=== PATIENT | female | born 1960 | race Caucasian/White ===

== ENCOUNTER 2018-01-09 13:56 | Emergency (ER) | payer OTHER ==
[~2018-01-09] VITALS: Ht 167.6 cm; Wt 72.6 kg
[2018-01-09] MEDS ORDERED: HYDROCODONE/APAP 10MG-325MG TAB PO ONE (14:30)
--- NOTE | 2018-01-09 14:52 | Diagnostic Imaging Report ---
EXAM: FOOT LEFT COMPLETE DATE: 01/09/2018 2:18 PM INDICATION: \S\r/o fx \S\[id number] \S\1430 COMPARISON: None FINDINGS: Amputation changes of second toe present. Scattered degenerative changes noted. Lisfranc alignment intact. There is a small plantar calcaneal enthesophyte. No distinct fracture identified. IMPRESSION: Chronic changes as above. Signed by: Dr. Cricket Chris MD on 01/09/2018 2:48 PM
--- NOTE | 2018-01-09 14:52 | Diagnostic Imaging Report ---
EXAM: ANKLE 3+ VIEWS LEFT DATE: 01/09/2018 2:18 PM INDICATION: Twisted ankle COMPARISON: None FINDINGS: The ankle mortise is symmetric. There is no abnormality of the talar dome. No fractures identified. Mild soft tissue swelling present. There is a small plantar calcaneal enthesophyte incidentally noted. IMPRESSION: Mild soft tissue swelling with no distinct fracture identified. Signed by: Dr. Cricket Crhis MD on 01/09/2018 2:48 PM
[2018-01-09] MEDS ORDERED: TRAMADOL HCL 50 MG TAB PO ONE (15:00)
[2018-01-09 15:38] VITALS: BP 149/65
== END 2018-01-09 16:15 | disposition home or self-care (01) ==
LOC: ER 13:56
DX: S93.402A Sprain of unspecified ligament of left ankle, initial encounter (principal); S93.622A Sprain of tarsometatarsal ligament of left foot, initial encounter; X50.1XXA Overexertion from prolonged static or awkward postures, initial encounter; Y92.008 Other place in unspecified non-institutional (private) residence as the place of occurrence of the external cause; I10 Essential (primary) hypertension; E11.9 Type 2 diabetes mellitus without complications
CPT/HCPCS: 99283

== ENCOUNTER 2019-03-30 10:49 | Emergency (ER) | payer OTHER ==
[~2019-03-30] VITALS: Ht 167.6 cm; Wt 72.6 kg
--- OUTSIDE RECORDS SUMMARY | 2019-03-30 10:52 | XMS REPORT ---
Author [facility] Address Unknown Phone Unavailable Care Team Providers Care Medical Appliance Maker Name Role Phone Misael HAYWOOD AMANDA Unavailable Unavailable Problems This patient has no known problems. Allergies, Adverse Reactions, Alerts This patient has no known allergies or adverse reactions. Medications This patient has no known medications. Results Test Description Test Time Test Comments Text Results Atomic Results Result Comments FOOT LEFT COMPLETE 2018-01-09 14:48:00 [place] [id number] [place] [id number] Patient Name: ANTONIO DIEGO MR #: [id number] : 1960 Age/Sex: 57/F Req #: [id number] Adm Physician: Ordered by: MIKE HARP TENTERING MACHINE OFF BEARER Report #: [id number] Location: ER Room/Bed: Procedure: [id number] DX/FOOT LEFT COMPLETE Exam Date: 01/09/18 Exam Time: 1430 REPORT STATUS: Signed EXAM: FOOT LEFT COMPLETE DATE: 01/09/2018 2:18 PM INDICATION: COMPARISON: None FINDINGS: Amputation changes of second toe present. Scattered degenerative changes noted. Lisfranc alignment intact. There is a small plantar calcaneal enthesophyte. No distinct fracture identified. IMPRESSION: Chronic changes as above. Signed by: Dr. Cricket Chris MD on 01/09/2018 2:48 PM Dictated By: CRICKET CHRIS MD 47 Transcribed By: GUSTAVO on 01/09/181447 COPY TO: MIKE HARP NP ANKLE 3+ VIEWS LEFT 2018-01-09 14:47:00 [place] [address] Patient Name: ANTONIO DIEGO MR #: [id number] : 1960 Age/Sex: 57/F Req #: [id number] Adm Physician: Ordered by: MIKE HARP NP Report #: [id number] Location: ER Room/Bed: Procedure: [id number] DX/ANKLE 3+ VIEWS LEFT Exam Date: 01/09/18 Exam Time: 1430 REPORT STATUS: Signed EXAM: ANKLE 3+ VIEWS LEFT DATE: 01/09/2018 2:18 PM INDICATION: Twisted ankle COMPARISON: None FINDINGS: The ankle mortise is symmetric. There is no abnormality of the talar dome. No fractures identified. Mild soft tissue swelling present. There is a small plantar calcaneal enthesophyte incidentally noted. IMPRESSION: Mild soft tissue swelling with no distinct fracture identified. Signed by: Dr. Cricket Chris MD on 01/09/2018 2:48 PM Dictated By: CRICKET CHRIS MD 47 Transcribed By: GUSTAVO on 01/09/181447 COPY TO: MIKE HARP NP
[2019-03-30] MEDS ORDERED: HYDROCODONE/APAP 7.5MG-325MG 1 EA TAB PO PRN (11:15)
--- NOTE | 2019-03-30 12:16 | Diagnostic Imaging Report ---
EXAMINATION: Head and cervical spine CT without contrast. HISTORY: Status post fall the day before, head trauma, evaluate for fractures. COMPARISON: None. TECHNIQUE: Multidetector axial images were obtained without contrast from the foramen magnum to the vertex and through the cervical spine. The images were reconstructed using brain and bone algorithms. Thin section brain images were reformatted into coronal and sagittal planes. Dose modulation, iterative reconstruction, and/or weight based adjustment of the mA/kV was utilized to reduce the radiation dose to as low as reasonably achievable. HEAD CT FINDINGS: Skull/scalp: No lytic or blastic lesions. No fractures. Parenchyma: A few scattered white matter hypodensities, most likely age-related minimal chronic atelectatic changes. Otherwise no areas of abnormal density in the brain parenchyma. No mass, hemorrhage or CT evidence of acute vascular insult. Brain volume: Normal for age. Ventricles: No hydrocephalus or displacement. Arteries: No density suggestive of thrombus. Dural sinuses: No abnormal density. Extra-axial spaces: No abnormal density. Foramen magnum: No mass, Chiari malformation, or basilar invagination. Sella: No obvious mass. Paranasal/mastoid sinuses: Imaged portions unremarkable. CERVICAL SPINE CT FINDINGS: Alignment:Normal alignment and lordosis. Soft tissues: Normal. Vertebrae: Normal height and density. No acute fracture, infection or neoplasm. Degenerative changes: C1-C2 to C5-6: No significant degenerative changes C6-C7: Small disc osteophyte complex formation asymmetric to left, mild uncovertebral arthrosis medial the left. Mild to moderate narrowing of the left lateral recess and left foramen. C7-T1: Prominent facet arthrosis minimally on the left, without significant canal or foraminal stenosis. IMPRESSION: Head CT: 1. No acute postraumatic intracranial hemorrhage. 2. Minimal chronic microvascular ischemic changes. Cervical spine CT: 1. No acute fractures or dislocations. 2. Chronic degenerative changes as described. Note: Acute post traumatic spinal cord, vascular or ligamentous injury cannot adequately be assessed with CT. Signed by: Dr. Carolin White M.D. on 03/30/2019 12:12 PM
--- NOTE | 2019-03-30 12:54 | Diagnostic Imaging Report ---
EXAMINATION: HAND 3+ VIEWS RIGHT INDICATION: Trauma COMPARISON: None FINDINGS: No acute fracture or dislocation. Alignment appears anatomic. Mild scattered degenerative changes. The soft tissues appear unremarkable. IMPRESSION: No acute osseous injury. Signed by: Lester Chatman MD on 03/30/2019 12:51 PM
--- NOTE | 2019-03-30 12:55 | Diagnostic Imaging Report ---
EXAMINATION: KNEE LEFT THREE VIEWS INDICATION: Trauma COMPARISON: None FINDINGS: No acute fracture or dislocation. Alignment appears anatomic. No substantial joint effusion. Soft tissues appear unremarkable. Mild atherosclerotic vascular calcifications. IMPRESSION: No acute osseous injury. Signed by: Lester Chatman MD on 03/30/2019 12:52 PM
--- NOTE | 2019-03-30 12:58 | Diagnostic Imaging Report ---
EXAMINATION: SP LUMBAR, COMPLETE MIN 4VW INDICATION: Trauma COMPARISON: None FINDINGS: No acute compression fracture. Alignment is anatomic. Mild multilevel degenerative changes most notably at L5-S1 where there is disc space narrowing and small osteophyte formation. Heavy atherosclerotic vascular calcifications. Nonobstructive bowel gas pattern. Status post cholecystectomy. IMPRESSION: No acute compression fracture. Mild degenerative changes. Signed by: Lester Chatman MD on 03/30/2019 12:54 PM
--- NOTE | 2019-03-30 12:59 | Diagnostic Imaging Report ---
EXAMINATION: HIP LEFT 2-3 VW (+/- PELVIS) INDICATION: Trauma COMPARISON: None FINDINGS: No acute fracture or dislocation. Alignment appears anatomic. Sclerotic lesion at the lateral left femoral head likely represents a bone island. IMPRESSION: No acute osseous injury. Signed by: Lester Chatman MD on 03/30/2019 12:56 PM
--- NOTE | 2019-03-30 13:02 | Diagnostic Imaging Report ---
EXAMINATION: RIBS UNILAT W/CXR INDICATION: Trauma COMPARISON: None FINDINGS: LINES/TUBES:None LUNGS:The lungs are well-inflated. No focal consolidation or pulmonary edema. PLEURA:No pleural effusion or pneumothorax. MEDIASTINUM:The cardiomediastinal silhouette appears normal in size and shape. Bic mac chest BONES/SOFT TISSUES:No displaced rib fractures. ABDOMEN:No free air under the diaphragm. IMPRESSION: No displaced rib fractures. No acute cardiopulmonary process. Signed by: Lester Chatman MD on 03/30/2019 12:59 PM
[2019-03-30 13:46] VITALS: BP 124/77
== END 2019-03-30 14:00 | disposition home or self-care (01) ==
LOC: ER 10:49
DX: S06.890A Other specified intracranial injury without loss of consciousness, initial encounter (principal); S80.212A Abrasion, left knee, initial encounter; S16.1XXA Strain of muscle, fascia and tendon at neck level, initial encounter; S39.012A Strain of muscle, fascia and tendon of lower back, initial encounter; S00.83XA Contusion of other part of head, initial encounter; S60.211A Contusion of right wrist, initial encounter; S60.221A Contusion of right hand, initial encounter; S80.02XA Contusion of left knee, initial encounter; W01.0XXA Fall on same level from slipping, tripping and stumbling without subsequent striking against object, initial encounter; Y93.89 Activity, other specified; Y92.410 Unspecified street and highway as the place of occurrence of the external cause; R07.81 Pleurodynia; E11.9 Type 2 diabetes mellitus without complications; I10 Essential (primary) hypertension
CPT/HCPCS: 70450; 71101; 72110; 72125; 99284

== ENCOUNTER 2019-04-09 15:31 | Emergency (ER) | payer OTHER ==
[~2019-04-09] VITALS: Ht 167.6 cm; Wt 72.6 kg
[2019-04-09] MEDS ORDERED: HYDROCODONE/APAP 5MG-325MG TAB ONE (15:59)
[2019-04-09] MEDS ORDERED: HYDROCODONE/APAP 10MG-325MG TAB PO NR (16:00)
--- NOTE | 2019-04-09 16:32 | Diagnostic Imaging Report ---
EXAMINATION: CT of the pelvis without contrast. TECHNIQUE: Spiral CT images of the pelvis were obtained without intravenous contrast. Coronal and sagittal reformatted images were available. COMPARISON: Left hip radiographs 2018 CLINICAL HISTORY:Status post fall on March 29 ongoing left hip pain DISCUSSION: ABSENCE OF INTRAVENOUS CONTRAST DECREASES SENSITIVITY FOR DETECTION OF FOCAL LESIONS AND VASCULAR PATHOLOGY. Pelvis: Bones: Diffuse osteopenia. No acute fractures. Specifically, the left hip joint, proximal femur, and acetabulum are intact. Probable bone island laterally within the left femoral head. Pelvic viscera: Atherosclerotic calcification of the visualized iliac arterial systems. Distal segments of the colon are unremarkable. No dilatation of the visualized small bowel to suggest obstruction. Urinary bladder is poorly distended and incompletely evaluated. Uterus is not identified and has presumably been resected. No lymphadenopathy. Soft tissues: No focal soft tissue abnormalities. Degenerative disc changes of the partially visualized lower lumbar spine. Sacroiliac joints are intact. IMPRESSION: No acute osseous abnormality. Signed by: Dr. Logan Fabian M.D. on 04/09/2019 4:28 PM
== END 2019-04-09 16:50 | disposition home or self-care (01) ==
LOC: FSED 15:31
DX: S73.112A Iliofemoral ligament sprain of left hip, initial encounter (principal); W18.30XA Fall on same level, unspecified, initial encounter; Y92.008 Other place in unspecified non-institutional (private) residence as the place of occurrence of the external cause; I10 Essential (primary) hypertension; E11.9 Type 2 diabetes mellitus without complications
CPT/HCPCS: 72192; 99284

== ENCOUNTER 2019-11-26 10:40 | Inpatient (IN) | payer OTHER ==
[~2019-11-26] VITALS: Ht 165.1 cm; Wt 72.6 kg
--- NOTE | 2019-11-26 11:49 | Diagnostic Imaging Report ---
EXAMINATION: CHEST SINGLE (NOT PORTABLE) INDICATION: ^FALL ^[id number] ^1100 COMPARISON: 03/30/2019 FINDINGS: AP view TUBES and LINES: None. LUNGS: Limited by body habitus and low lung volumes. Mild central lesser congestion. No definite focal consolidation. PLEURA: No significant pleural effusion or pneumothorax. HEART AND MEDIASTINUM: The cardiac silhouette is enlarged on this AP view. BONES AND SOFT TISSUES: No acute osseous lesion. Soft tissues are unremarkable. UPPER ABDOMEN: No free air under the diaphragm. IMPRESSION: No acute thoracic abnormality. Enlarged cardiac silhouette and mild central vascular congestion, accentuated by low lung volumes and technique. Signed by: Dr. Luciano Xie MD on 11/26/2019 11:46 AM
--- NOTE | 2019-11-26 11:50 | Diagnostic Imaging Report ---
SHOULDER LEFT COMPLETE - 2 views HISTORY: Pain COMPARISON: None available. IMPRESSION: Minimally displaced fracture of the left humeral neck. No dislocation. Signed by: Dr. Luciano Xei MD on 11/26/2019 11:46 AM
--- NOTE | 2019-11-26 11:52 | Diagnostic Imaging Report ---
HUMERUS LEFT 2+VIEWS - 2 views HISTORY: Pain COMPARISON: None available. IMPRESSION: Minimally displaced fracture of the left humeral neck. Displaced proximal ulnar/olecranon fracture with associated soft tissue swelling of the elbow. Signed by: Dr. Luciano Xie MD on 11/26/2019 11:48 AM
--- NOTE | 2019-11-26 11:53 | Diagnostic Imaging Report ---
ELBOW LEFT COMPLETE - 3 views HISTORY: Pain COMPARISON: None available. IMPRESSION: Moderately displaced olecranon fracture with associated soft tissue swelling and elbow joint effusion. Signed by: Dr. Luciano Xie MD on 11/26/2019 11:49 AM
[2019-11-26] MEDS ORDERED: ONDANSETRON HCL 4 MG ORAL DISINTEGRATING TAB PO ONE (12:00)
[2019-11-26] MEDS ORDERED: HYDROCODONE/APAP 7.5MG-325MG 1 EA TAB PO ONE (12:00)
[2019-11-26 12:59] LABS: BASOPHILS % 0.9 % (0.0-1.0); EOSINOPHILS % 0.9 % (0.0-6.0); HEMATOCRIT 30.1 % (34.2-44.1); LYMPHOCYTES # (AUTO) 0.8 (1.0-3.2); LYMPHOCYTES % 23.3 % (18.0-39.1); MEAN CORPUSCULAR HEMOGLOBIN 29.2 pg (28-32); MEAN CORPUSCULAR HGB CONC 33.2 g/dL (31-35); MONOCYTES # (AUTO) 0.2 (0.2-0.8); MONOCYTES % 7.2 % (4.4-11.3); NEUTROPHILS # (AUTO) 2.3 (2.1-6.9); NEUTROPHILS % 67.4 % (38.7-80.0); RED BLOOD COUNT 3.42 x10e6/uL (3.6-5.1); RED CELL DISTRIBUTION WIDTH 15.9 % (11.7-14.4)
[2019-11-26 13:03] LABS: PLATELET COUNT 49 x10e3/uL (140-360)
[2019-11-26 13:08] LABS: INR 1.19; PROTHROMBIN TIME 15.9 seconds (11.9-14.5)
[2019-11-26 13:09] LABS: PARTIAL THROMBOPLASTIN TIME 36.5 seconds (23.8-35.5)
[2019-11-26 13:18] LABS: ALANINE AMINOTRANSFERASE 20 IU/L (0-55); ALBUMIN 3.1 g/dL (3.5-5.0); ALBUMIN/GLOBULIN RATIO 0.8 (0.8-2.0); ALKALINE PHOSPHATASE 154 IU/L (40-150); ANION GAP 16.1 mmol/L (8-16); BLOOD UREA NITROGEN 10 mg/dL (7-26); BUN/CREATININE RATIO 12 (6-25); CALCIUM 8.8 mg/dL (8.4-10.2); CARBON DIOXIDE 26 mmol/L (22-29); CHLORIDE 90 mmol/L (98-107); CREATINE KINASE 66 IU/L (29-168); CREATININE, SERUM 0.83 mg/dL (0.57-1.11); EST GLOMERULAR FILTRATION RATE > 60 ML/MIN (60-); GLUCOSE 177 mg/dL (74-118); POTASSIUM 3.1 mmol/L (3.5-5.1); SODIUM 129 mmol/L (136-145)
[2019-11-26] MEDS ORDERED: HYDROCODONE/APAP 7.5MG-325MG 1 EA TAB PO PRN (13:30)
[2019-11-26] MEDS ORDERED: SODIUM CHLORIDE 0.9% 1000ML 1,000 ML IV SCH (13:30)
[2019-11-26 13:55] LABS: CLARITY,URINE HAZY (CLEAR); COLOR,URINE YELLOW (YELLOW); LEUKOCYTE ESTERASE ,URINE 1+ (NEGATIVE)
[2019-11-26 13:56] LABS: BILIRUBIN,URINE NEGATIVE (NEGATIVE); KETONES,URINE NEGATIVE (NEGATIVE); NITRITE,URINE NEGATIVE (NEGATIVE); PROTEIN,URINE DIPSTICK NEGATIVE (NEGATIVE); URINE UROBILINOGEN 0.2 mg/dL (0.2 - 1)
[2019-11-26 14:00] LABS: BACTERIA,URINE FEW /HPF; EPITHELIAL CELLS,URINE FEW /LPF; RBC,URINE 0-5 /HPF (0-5); WBC,URINE (MAN) 21-50 /HPF (0-5)
[2019-11-26] MEDS ORDERED: KCL 20MEQ/.9 SOD CHL 1,000 ML IV ONE (14:00)
[2019-11-26] MEDS ORDERED: POTASSIUM CHLORIDE 20 MEQ TAB CR PO ONE (14:30)
[2019-11-26 15:15] VITALS: BP 145/79
--- NOTE | 2019-11-26 15:30 | NUR ---
Manual BP 180/80.
[2019-11-26 15:32] VITALS: BP 180/80
--- NOTE | 2019-11-26 16:06 | Diagnostic Imaging Report ---
Examination: CT head without contrast Clinical Indication: Fall with head injury. Technique: Transaxial noncontrast images from the skull base through the vertex were obtained. Sagittal and coronal reformatted images were done. Dose modulation, iterative reconstruction, and/or weight based adjustment of the mA/kV was utilized to reduce the radiation dose to as low as reasonably achievable. Comparison: Head CT dated August 28, 2018. Findings: Scalp: No abnormalities. Bones: Intact. No fractures. No blastic or lytic lesions. Brain sulci: Appropriate for patient's age. Ventricles: Normal in size and configuration. No hydrocephalus. . Extra-axial space: No abnormalities. Parenchyma: There are subtle patchy areas of low-attenuation within subcortical and periventricular white matter, nonspecific, but could represent microvascular ischemic disease. No masses, hemorrhage, or acute or chronic cortical based vascular insults. Suprasellar region: No abnormalities. Craniocervical junction: The foramen magnum is patent. No Chiari one malformation. Impression: 1. No acute intracranial finding. 2. Unchanged chronic microvascular ischemic change when compared to prior head CT dated August 28, 2018. Signed by: Dr. Christiana Khanna M.D. on 11/26/2019 4:02 PM
[2019-11-26] MEDS: MORPHINE SULFATE INJ 4 MG/ML INJ 1ML IV PRN ×2 (18:14→23:23)
--- NOTE | 2019-11-26 19:00 | NUR ---
RECEIVED REPORT FROM PREVIOUS NURSE. CALL LIGHT WITHIN REACH. PATIENT IN BED.
[2019-11-26 20:00] VITALS: BP 177/95
[2019-11-26 20:12] LABS: CREATINE KINASE MB 2.2 ng/mL (0-5.0)
[2019-11-26] MEDS ORDERED: GABAPENTIN300 MG PO (20:19)
[2019-11-26] MEDS ORDERED: BUSPIRONE HCL5 MG PO (20:19)
[2019-11-26] MEDS ORDERED: PIOGLITAZONE HC45 MG PO (20:19)
[2019-11-26] MEDS ORDERED: BENZONATATE100 MG PO (20:19)
[2019-11-26] MEDS ORDERED: LOPRESSOR25 MG PO (20:21)
[2019-11-26] MEDS ORDERED: ESIDRIX25 MG PO (20:21)
[2019-11-26 20:28] VITALS: BP 177/95
--- NOTE | 2019-11-26 20:47 | NUR ---
PATIENT COMPLAINING OF PAIN ESPECIALLY WHEN SHE MOVES HER LEFT ARM. CALLED AND TALKED TO DR. REINOSO ABOUT THE PATIENT'S PAIN AND HIGH BLOOD PRESSURE. DR. REINOSO ORDERED THAT HER NORCO BE 10 MG Q4 AND GIVE 10MG IV OF METOPROL NOW AND 25 MG BID METOPROL.
[2019-11-26] MEDS: HYDROCODONE/APAP 10MG-325MG TAB PO PRN (20:52)
[2019-11-26] MEDS ORDERED: METOPROLOL TARTRATE INJ 1 MG/ML VIAL IV ONE (21:00)
[2019-11-26] MEDS: ONDANSETRON HCL INJ 2MG/ML 2ML 2 MG/ML VIAL IV PRN (23:23)
[2019-11-26 23:52] VITALS: BP 120/57
[2019-11-27] VITALS (7 sets, daily range): BP systolic 134–189; BP diastolic 63–87
[2019-11-27] MEDS: HYDROCODONE/APAP 10MG-325MG TAB PO PRN ×2 (02:58→10:23)
[2019-11-27] MEDS: ONDANSETRON HCL INJ 2MG/ML 2ML 2 MG/ML VIAL IV PRN ×2 (05:12→21:32)
[2019-11-27] MEDS: MORPHINE SULFATE INJ 4 MG/ML INJ 1ML IV PRN ×3 (05:12→21:32)
[2019-11-27 05:50] LABS: BASOPHILS % 0.7 % (0.0-1.0); EOSINOPHILS # (AUTO) 0.1 (0.0-0.4); EOSINOPHILS % 1.7 % (0.0-6.0); HEMATOCRIT 32.3 % (34.2-44.1); HEMOGLOBIN 10.5 g/dL (12.0-16.0); LYMPHOCYTES # (AUTO) 0.9 (1.0-3.2); LYMPHOCYTES % 15.2 % (18.0-39.1); MEAN CORPUSCULAR HEMOGLOBIN 30.2 pg (28-32); MEAN CORPUSCULAR HGB CONC 32.5 g/dL (31-35); MEAN CORPUSCULAR VOLUME 92.8 fL (81-99); MONOCYTES # (AUTO) 0.5 (0.2-0.8); MONOCYTES % 8.3 % (4.4-11.3); NEUTROPHILS # (AUTO) 4.4 (2.1-6.9); NEUTROPHILS % 73.8 % (38.7-80.0); PLATELET COUNT 55 x10e3/uL (140-360); RED BLOOD COUNT 3.48 x10e6/uL (3.6-5.1); RED CELL DISTRIBUTION WIDTH 15.9 % (11.7-14.4)
[2019-11-27 06:12] LABS: ALANINE AMINOTRANSFERASE 20 IU/L (0-55); ALBUMIN 3.1 g/dL (3.5-5.0); ALBUMIN/GLOBULIN RATIO 0.8 (0.8-2.0); ALKALINE PHOSPHATASE 140 IU/L (40-150); ANION GAP 14.2 mmol/L (8-16); BLOOD UREA NITROGEN 9 mg/dL (7-26); BUN/CREATININE RATIO 11 (6-25); CALCIUM 8.6 mg/dL (8.4-10.2); CARBON DIOXIDE 26 mmol/L (22-29); CHLORIDE 98 mmol/L (98-107); CREATININE, SERUM 0.79 mg/dL (0.57-1.11); EST GLOMERULAR FILTRATION RATE > 60 ML/MIN (60-); GLUCOSE 162 mg/dL (74-118); POTASSIUM 4.2 mmol/L (3.5-5.1); SODIUM 134 mmol/L (136-145)
[2019-11-27 06:51] LABS: CREATINE KINASE MB 1.9 ng/mL (0-5.0)
--- NOTE | 2019-11-27 07:07 | NUR ---
GAVE REPORT TO ONCOMING NURSE. CALL LIGHT WITHIN REACH. PATIENT IN BED. DID ROUNDING WITH ONCOMING NURSE.
--- NOTE | 2019-11-27 08:35 | NUR ---
ORTHOPEDIC CONSULTATION 59 year old left hand dominant female presents to the ED after a mechanical fall with left arm pain. She denies numbness, paresthesias and loss of distal motor function. Denies pain in any other extremity. PMdhx: HTN, DM, Right Femur Fracture Allergies: NKDA SurgHx: Terrie, Hysterectomy FamHx: Non-contributory SocHx: Former Tob (Quit 10 years ago), Neg EtOH, Neg Drugs VS T 97.7 HR 91 RR 18 BP 137/77 O2 95% Left Upper Extremity In Splint Sling clean dry and intact No open lesions or sores Motor: + AIN, PIN, Radial, Median, Ulnar Sensation intact to light touch Pulses + Radial, good capillary refill Compartments soft Xrays: Displaced left olecranon fracture and proximal humerus fracture 59 year old with ipsilateral proximal humerus and olecranon fracture Plan for ORIF tomorrow NPO except meds Hold anticoagulation after midnight IVF while NPO Analgesics Continue Splint DAISHA Zarco, DO [facility] [place].
[2019-11-27] MEDS: PANTOPRAZOLE 40 MG 10ML VIAL IV SCH (08:41)
[2019-11-27] MEDS: METOPROLOL TARTRATE 25 MG TAB PO SCH ×2 (08:42→17:08)
[2019-11-27] MEDS: HEPARIN SOD (PORCINE) 5,000 UNIT/ML VIAL SC SCH ×2 (10:23→17:10)
[2019-11-27] MEDS ORDERED: HYDRALAZINE HCL 20 MG/ML VIAL IV PRN (10:45)
[2019-11-27] MEDS ORDERED: ACETAMINOPHEN 325 MG TAB PO PRN (10:45)
[2019-11-27] MEDS ORDERED: DEXTROSE 50% SYRINGE 50 ML IV PRN (11:00)
[2019-11-27] MEDS ORDERED: BUSPIRONE HCL 5 MG TAB PO PRN (11:00)
[2019-11-27] MEDS ORDERED: NICOTINE 21 MG/EA PATCH TOP SCH (12:00)
[2019-11-27] MEDS: INSULIN LISPRO 100 UNIT/1 ML 3ML VIAL SQ SCH ×3 (12:00→20:23)
[2019-11-27] MEDS: GABAPENTIN 300 MG CAP PO SCH ×2 (17:06→20:20)
--- NOTE | 2019-11-27 19:00 | NUR ---
RECEIVED REPORT FROM PREVIOUS NURSE. CALL LIGHT WITHIN REACH. PATIENT IN BED.
[2019-11-28] VITALS (7 sets, daily range): BP systolic 151–168; BP diastolic 60–75
[2019-11-28] MEDS: ONDANSETRON HCL INJ 2MG/ML 2ML 2 MG/ML VIAL IV PRN (04:30)
[2019-11-28] MEDS: MORPHINE SULFATE INJ 4 MG/ML INJ 1ML IV PRN ×2 (04:30→08:45)
[2019-11-28 05:43] LABS: BASOPHILS # (AUTO) 0.1 (0.0-0.1); BASOPHILS % 0.9 % (0.0-1.0); EOSINOPHILS # (AUTO) 0.2 (0.0-0.4); EOSINOPHILS % 3.3 % (0.0-6.0); HEMATOCRIT 29.3 % (34.2-44.1); HEMOGLOBIN 9.5 g/dL (12.0-16.0); LYMPHOCYTES # (AUTO) 1.5 (1.0-3.2); LYMPHOCYTES % 21.5 % (18.0-39.1); MEAN CORPUSCULAR HEMOGLOBIN 29.7 pg (28-32); MEAN CORPUSCULAR HGB CONC 32.4 g/dL (31-35); MEAN CORPUSCULAR VOLUME 91.6 fL (81-99); MONOCYTES # (AUTO) 0.8 (0.2-0.8); MONOCYTES % 10.7 % (4.4-11.3); NEUTROPHILS # (AUTO) 4.5 (2.1-6.9); NEUTROPHILS % 63.3 % (38.7-80.0); RED CELL DISTRIBUTION WIDTH 15.8 % (11.7-14.4)
[2019-11-28 06:03] LABS: ALBUMIN 2.9 g/dL (3.5-5.0); ALBUMIN/GLOBULIN RATIO 0.7 (0.8-2.0); ANION GAP 12.2 mmol/L (8-16); CALCIUM 8.8 mg/dL (8.4-10.2); CREATININE, SERUM 1.02 mg/dL (0.57-1.11); POTASSIUM 4.2 mmol/L (3.5-5.1)
[2019-11-28 06:11] LABS: MAGNESIUM 0.9 MG/DL (1.3-2.1); PLATELET COUNT 47 x10e3/uL (140-360)
--- NOTE | 2019-11-28 06:24 | NUR ---
LAB CALLED BECAUSE THE PATIENT HAS A CRITICAL LAB VALUE OF 0.9 FOR MAGNESIUM AND [address] REINOSO OFFICE AND TALKED TO JONATHAN CONNELLY ABOUT THE CRITICAL LAB RESULTS. SHE ORDERED 2 GM MAGNESIUM NOW AND REDO MAGNESIUM LAB IN ONE HOUR
[2019-11-28 06:26] LABS: THYROID STIMULATING HORMONE 1.335 uIU/mL (0.350-4.940)
[2019-11-28] MEDS ORDERED: MAGNESIUM SULFATE 2GM/50ML 50 ML IV ONE (06:30)
[2019-11-28] MEDS ORDERED: SODIUM CHLORIDE 0.9% 250ML 250 ML ONE (06:39)
--- NOTE | 2019-11-28 07:14 | NUR ---
CALLED AND LEFT A MESSAGE FOR A CONSULTATION FOR DR. CHOWDARY.
--- NOTE | 2019-11-28 07:14 | NUR ---
GAVE BEDSIDE SHIFT REPORT TO ONCOMING NURSE. CALL LIGHT WITHIN REACH. PATIENT IN BED. HEPARIN IS RUNNING WELL. Addendum: 11/28/19 at 0716 by Madyson Granados RN PLEASE IGNORE THE HEPARIN PART OF THE NOTE. THAT IS FOR ANOTHER PATIENT
[2019-11-28] MEDS: INSULIN LISPRO 100 UNIT/1 ML 3ML VIAL SQ SCH ×4 (07:30→21:00)
[2019-11-28] MEDS: PANTOPRAZOLE 40 MG 10ML VIAL IV SCH (08:59)
[2019-11-28] MEDS: METOPROLOL TARTRATE 25 MG TAB PO SCH ×2 (09:00→18:39)
[2019-11-28] MEDS: GABAPENTIN 300 MG CAP PO SCH ×3 (09:00→21:11)
[2019-11-28] MEDS ORDERED: MUPIROCIN 2% OINT 22 GM TUBE ONE ×2 (10:50→11:57)
[2019-11-28] MEDS ORDERED: BUPIVACAINE HCL 0.5% INJ 30 ML VIAL INJ ONE ×2 (10:50→11:57)
--- NOTE | 2019-11-28 11:24 | Consultation ---
DATE OF CONSULTATION: 11/28/2019 Thank you, Dr. Christie, for this consultation. REASON FOR CONSULTATION: Thrombocytopenia. HISTORY OF PRESENT ILLNESS: A 59-year-old female with history of diabetes, hypertension, insomnia, neuropathy, recent history of fall with fracture, and now she had one more fall yesterday in the store. She lost her steps on the carpet. She had x-ray done, which shows minimally displaced fracture of the left humeral neck, displaced proximal ulnar and olecranon fracture with associated soft tissue swelling of the elbow. She has been followed with Orthopedic and scheduled for procedure includes ORIF, open reduction and internal fixation of the left proximal humerus and olecranon fracture. The patient had CBC, which shows thrombocytopenia. Repeated CBC confirmed persistent thrombocytopenia. The patient denies any prior history of any hepatitis. She has a history of alcohol almost daily that day. She drinks vodka. She also has a normocytic anemia. Coagulation profile was mildly impaired. Her AST was slightly elevated as well as a total bilirubin. PAST MEDICAL HISTORY: Includes diabetes, hypertension, insomnia, and neuropathy. SOCIAL HISTORY: Smoker and also drinks alcohol. Vodka almost daily basis. No drugs. REVIEW OF SYSTEMS: As per HPI. ALLERGIES: NKDA. MEDICATION LIST: Reviewed. FAMILY HISTORY: Reviewed, noncontributory. PHYSICAL EXAMINATION: GENERAL: Alert, awake, and communicative. HEENT: Normocephalic and atraumatic. Sclerae pale. Conjunctivae clear. NECK: Supple. CHEST: Decreased breath sounds in the bases. ABDOMEN: Soft and nontender. EXTREMITIES: Positive tenderness at the fracture site. LABS AND IMAGING: Reviewed. ASSESSMENT AND PLAN: The patient with history of multiple medical conditions, currently in hospital with an episode of fall with a wrist fracture, following Orthopedic, scheduled for open reduction and internal fixation of left humeral fracture and also proximal ulnar and olecranon fracture. The patient also had thrombocytopenia and anemia. 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 1. She likely has alcoholic hepatitis. 2. Clinically, no evidence of bleeding. Recommendations: 1. Platelet transfusion before procedure. 2. Discussed about alcohol cessation. 3. We will check folic acid and B12 level. 4. We will follow. Anemia. 1. Normocytic anemia. 2. Likely related with alcohol liver disease and anemia of chronic disease. Recommendations: 1. Complete workup. 2. Further recommendations and workup as outpatient. We will continue remaining care and we will follow the patient closely. MD KINDRA Childers/JAN /[id number]
--- NOTE | 2019-11-28 11:30 | NUR ---
speaking with OR staff about status of platelets. units are here, new type and screen completed. per lab, unit of platelet to be ready to give within the half hour. patient aware. wctm.
--- NOTE | 2019-11-28 11:54 | NUR ---
patient leaving unit for OR. OR staff will picker packer ordered platelet bag when ready. patient's necklace and ring placed into plastic container and left at bedside.
[2019-11-28] MEDS ORDERED: ACETAMINOPHEN 1000 MG/100 ML 100 ML IV ONE (12:10)
[2019-11-28] MEDS ORDERED: HYDROMORPHONE 1MG/1ML INJ ONE (13:34)
[2019-11-28] MEDS ORDERED: ALBUMIN 25% 12.5GM 50ML 100 ML IV ONE (14:10)
[2019-11-28] MEDS ORDERED: KETOROLAC TROMETHAMINE 30 MG/ML VIAL IV PRN (17:00)
--- NOTE | 2019-11-28 17:17 | NUR ---
ORTHOPEDIC OPERATIVE NOTE PREOPERATIVE DIAGNOSES: Left Displaced Intra-articular Olecranon Fracture and Ipsilateral Proximal Humerus Surgical Neck Fracture POSTOPERATIVE DIAGNOSES: Left Displaced Intra-articular Olecranon Fracture and Ipsilateral Proximal Humerus Surgical Neck Fracture PROCEDURE PERFORMED:Left Olecranon Open Reduction Internal Fixation and Left Proximal Humerus Open Reduction Internal Fixation, Flouroscopic Interpretation, Long Head Biceps Tenodesis ANESTHESIA: General. SURGEON: Eufemia Zarco DO [employer] CERTIFIED NETWORK PROFESSIONAL: HUSSAIN Pablo (required due to complexity of case) ESTIMATED BLOOD LOSS:150cc. COMPLICATIONS: None. COMPONENTS: Olecranon: Stryker3 Hole Left Variax Olecranon Plate, 3.4 Locking Screws x 6, 3.5 Non-Locking Screw x 1 Proximal Humerus: Barney Axos 3 Proximal Humerus 4 Hold Plate, 8 4.0 Locking Screws, 3 3.5 Non-Locking Screw, 1 4.0 Cancellous Screw TOURNIQUET TIME: 62 min BRIEF HISTORY:59 year old left hand dominant female who had a mechanical fall and sustained a displaced olecranon fracture and ipsilateral proximal humerus fracture. PROCEDURE: The patient was taken to the operative suite, placed on the operative field.Anesthesia provided general endotracheal anesthesia. Once adequately sedated, the patient was placedalateral decubitus position on a franklin bag. Care was ensured that she was well positioned, adequately secured and padded. A tourniquet was applied and theLeftupper extremity was then prepped and draped in the usual sterile fashion. Using an esmarch and tourniquet, the extremity was exsanguinated. A direct posterior approach was used to dissect to the triceps fascia and subcutaneous border of the ulna. The fracture hematoma was irrigated and the fracture was reduced. The reduction was confirmed in anatomic position and held in position by k-wires. An olecranon plate was placed in position and confirmed in adequate location. Locking and non-locking screws were placed in position and confirmed to be within the bone and avoiding the joint both through fluoroscopy and examination with unblocked flexion, extension, supination and pronation. The area was thoroughly irrigated. Theflexor/extensor fascia and triceps insertion where the plate lied was closed with vicryl. The subcutaneous tissue was closed with vicryl as well and the skin was closed with Monocryl. Steristrips were applied and the incision was covered with an Aquacel dressing. Next the patient was placed in the beach chair position. Care was ensured that he was well positioned, adequately secured and padded. At this point, the left upper extremity was then prepped and draped in the usual sterile fashion. A deltopectoral approach was used and taken down to the skin with a #15 blade scalpel. Care was taken to preserve the cephalic vein with adequate hemostasis. At this point, blunt dissection with Alfred scissors was used to come to the overlying subscapular tendon and bursal tissue. Any perforating bleeders were cauterized with Bovie to obtain hemostasis. Once the bursa was removed the subscapular tendon could be easily visualized. At this point, the rotator cuff in the subacromial region was evaluated. Sutures were placed within the bony tendon junction of the subscapularis, supraspinatus and infraspinatus. The fracture was evaluated and a voluminous humeral shaft was noted. With an elevator the tuberosities were seperated and the articular surface was elevated. The bicep was found to incarcerated in the fracture site and partially torn. The proximal portion was excised and the tendon was tenodesed with suture to the pec tendon. The fracture fragments were reduced and pins were placed to hold the fragments in position. Next a [employer] proximal humerus plate was attached lateral to the biceps groove. Proper placement was visualized with flouroscopy. The proximal portion of the plate was secured in place to with locking screws and 1 cancellous screw and the distal portion was secured to the cortical screws. T he sutures through the rotator cuff were secured through the plate further augme nting fixation. After all the hardware was placed, careful flouroscopic evaluation was performed in a "around the globe" manner to ensure there was no intra-articular penetration of the screws. The rotator cuff interval was closed and was thoroughly irrigated.The deltopectoral interval was closed with vicryl, as well the subcutaneous tissue after adequate hemostasis. The skin was closed with monocryl and a Aquacel dressing, ABD Dressings and Foam Tape. The arm was placed in a sling and posterior slab splint and [facility] DISPOSITION: The patient tolerated well and transferred to Postanesthesia Care Unit in satisfactory condition.
--- NOTE | 2019-11-28 18:09 | NUR ---
patient returned to room 104. patient denies any pain. dressing CDI. sling in place.
[2019-11-28] MEDS: CEFTRIAXONE SOD 1 GM/NS 50 ML 50 ML IV SCH (18:38)
[2019-11-28] MEDS ORDERED: MIDAZOLAM HCL 2 MG/2 ML VIAL ONE (18:44)
[2019-11-28] MEDS ORDERED: FENTANYL CITRATE/PF 100MCG/2 ML INJ ONE (18:44)
[2019-11-28] MEDS ORDERED: KETAMINE HCL INJ 50 MG/ML 10 ML VIAL ONE (18:44)
[2019-11-28] MEDS ORDERED: CEFAZOLIN SOD 1 GM VIAL ONE (19:37)
[2019-11-28] MEDS ORDERED: SEVOFLURANE INHAL SOLN 250 ML PEN BTL ONE (19:37)
[2019-11-28] MEDS ORDERED: ROCURONIUM BROMIDE 10 MG/ML 5ML VIAL IV ONE (19:37)
[2019-11-28] MEDS ORDERED: ONDANSETRON HCL INJ 2MG/ML 2ML 2 MG/ML VIAL ONE (19:37)
[2019-11-28] MEDS ORDERED: LIDOCAINE HCL 2% LOCAL INJ 5 ML SDV VIAL INJ ONE (19:37)
[2019-11-28] MEDS ORDERED: PHENYLEPHRINE HCL 1% 10 MG/ML VIAL ONE (19:37)
[2019-11-28] MEDS ORDERED: EPHEDRINE SULFATE INJ 50 MG/ML VIAL ONE (19:37)
[2019-11-28] MEDS ORDERED: PROPOFOL IV EMULSION 10 MG/ML 20 ML VIAL ONE (19:37)
[2019-11-28] MEDS: CEFAZOLIN SOD 1 GM/NS 50ML 50 ML IV SCH (21:10)
[2019-11-28] MEDS: HYDROCODONE/APAP 10MG-325MG TAB PO PRN (21:26)
[2019-11-29 00:50] VITALS: BP 167/67
[2019-11-29 04:00] VITALS: BP 162/64
[2019-11-29] MEDS: CEFAZOLIN SOD 1 GM/NS 50ML 50 ML IV SCH ×2 (05:00→13:38)
[2019-11-29] MEDS: HYDROCODONE/APAP 10MG-325MG TAB PO PRN ×2 (05:06→11:26)
--- NOTE | 2019-11-29 06:40 | NUR ---
Patient was very restless all night and kept calling for assistance and each call was answered either by the tech, primary nurse or the secondary nurse on the floor. Patient somehow got her IV unscrewed from gauge. Noted to be bleeding but gauge was still intact. reinforced the connection and continued IV fluids. About an hour later the patient was noted to be restless again asking to use the restroom for number 2. When asked if she was able to have a BM the previous attempts, she kind of got upset and we advised her that we were asking so that we can document her passing stool as this is part of discharge assessment when they have had surgery. Patient seemed to be able to understand why we were asking each time. IV access : around 5 am on making rounds on patient she is noted scooting all the way down to the end of the bed, covers on the floor , and IV catheter dislodged from the right wrist. She said she had been trying to find her call light but i noticed that she was lying on her call light and the light was already pressed. Patient appears to be having episodes of confusion but then snaps out of it and appears coherent. She reported that no one had answered her call light but all the staff on the shift were answering her calls. I advised her of fall precautions and left shoulder restrictions. IV access attempted. At this time she has no IV access and morning shift will be notified. Pain Med: [place] 10/325mg was administered for pain as there was no IV access. She does report that [place] does not help her in pain management. Advised her that she can speak to the doctor about the pain medicine. Patient was medicated for pain twice this shift. Patient did not have much sleep . was restless all night .
[2019-11-29 06:44] LABS: BASOPHILS % 0.6 % (0.0-1.0); EOSINOPHILS # (AUTO) 0.1 (0.0-0.4); EOSINOPHILS % 1.6 % (0.0-6.0); HEMATOCRIT 24.5 % (34.2-44.1); HEMOGLOBIN 7.8 g/dL (12.0-16.0); LYMPHOCYTES # (AUTO) 0.6 (1.0-3.2); LYMPHOCYTES % 11.5 % (18.0-39.1); MEAN CORPUSCULAR HEMOGLOBIN 29.5 pg (28-32); MEAN CORPUSCULAR HGB CONC 31.8 g/dL (31-35); MEAN CORPUSCULAR VOLUME 92.8 fL (81-99); MONOCYTES # (AUTO) 0.5 (0.2-0.8); MONOCYTES % 9.5 % (4.4-11.3); NEUTROPHILS # (AUTO) 3.8 (2.1-6.9); NEUTROPHILS % 76.6 % (38.7-80.0); PLATELET COUNT 57 x10e3/uL (140-360); RED BLOOD COUNT 2.64 x10e6/uL (3.6-5.1); RED CELL DISTRIBUTION WIDTH 15.8 % (11.7-14.4)
[2019-11-29 07:16] LABS: ALBUMIN 3.3 g/dL (3.5-5.0); ALBUMIN/GLOBULIN RATIO 0.9 (0.8-2.0); ANION GAP 14.5 mmol/L (8-16); CALCIUM 8.4 mg/dL (8.4-10.2); CREATININE, SERUM 0.97 mg/dL (0.57-1.11); MAGNESIUM 1.3 MG/DL (1.3-2.1); POTASSIUM 3.5 mmol/L (3.5-5.1)
[2019-11-29 07:54] VITALS: BP 162/71
[2019-11-29] MEDS: MORPHINE SULFATE INJ 4 MG/ML INJ 1ML IV PRN ×2 (08:40→10:51)
[2019-11-29 09:00] VITALS: BP 162/71
[2019-11-29] MEDS: PANTOPRAZOLE 40 MG 10ML VIAL IV SCH (09:00)
[2019-11-29] MEDS: GABAPENTIN 300 MG CAP PO SCH (09:00)
[2019-11-29] MEDS: METOPROLOL TARTRATE 25 MG TAB PO SCH (09:00)
[2019-11-29] MEDS: INSULIN LISPRO 100 UNIT/1 ML 3ML VIAL SQ SCH ×2 (09:01→11:30)
--- NOTE | 2019-11-29 10:54 | Progress Note ---
DATE: SUBJECTIVE: The patient is seen and examined today. The patient appears comfortable, clinically doing better. She had procedure yesterday, tolerated very well with no new worsening event noted. OBJECTIVE: GENERAL: Alert, awake and communicative. HEENT: Normocephalic, atraumatic. Sclerae pale. Conjunctivae clear. NECK: Supple. CHEST: Decreased breath sounds at the bases. ABDOMEN: Soft. EXTREMITIES: No edema. LABS AND IMAGING: Reviewed. ASSESSMENT AND PLAN: 1. The patient with history of multiple medical conditions, currently in hospital after episode of fall with resultant fracture include displaced fracture of the left humeral neck, displaced proximal ulna and olecranon fracture status post open reduction and internal fixation. The patient also had thrombocytopenia. 2. Thrombocytopenia. Current platelet count is slightly better. The patient required platelet transfusion before procedure. Tolerated procedure very well. She does have postoperative anemia. Anemia workup showed mild iron deficiency. 3. We will start patient on ferrous sulfate. 4. Clinical condition is stable. 5. Further recommendation and treatment as an outpatient. 6. Encouraged alcohol cessation. We will follow the patient closely. MD KINDRA Childers/JAN /[id number]
[2019-11-29 11:47] VITALS: BP 163/70
--- NOTE | 2019-11-29 12:37 | NUR ---
ORDERS FOR HOME HEALTH CARE REC'D SPOKE WITH PT AND SHE PREFERS [facility] (WHERE SHE WAS PREVIOUSLY BEING TREATED) [facility] [address] [place] [address] CM CALLED AND SPOKE WITH DR ROBERSON; ORDERS REC'D TO CHANGE TO [facility] PT REQUESTED CM CALLED [phone] AND SPOKE WITH LINDA AT [facility] ORDERS FAXED TO [phone] CONFIRMATION REC'D CHOICE LETTER SIGNED AND ON CHART COPY OF CHOICE LETTER TO PT
[2019-11-29] MEDS ORDERED: MAGNESIUM SULFATE 2GM/50ML 50 ML IV ONE (13:45)
[2019-11-29] MEDS ORDERED: FERROUS SULFAT325 MG PO (13:47)
[2019-11-29] MEDS ORDERED: CEFUROXIME250 MG PO (13:47)
[2019-11-29] MEDS ORDERED: TYLENOL WITH C1 EACH PO (13:47)
[2019-11-29] MEDS: CEFTRIAXONE SOD 1 GM/NS 50 ML 50 ML IV SCH (15:15)
[2019-11-29 16:27] VITALS: BP 148/64
--- NOTE | 2019-11-29 16:30 | NUR ---
PATIENT DISCHARGED. IV ACCESS REMOVED AND TELEMETRY D/C'D AND RETURNED. PRESCRIPTIONS AND DISCHARGE INSTRUCTIONS GIVEN TO PATIENT AND PATIENT REPEATED BACK FOLLOW UP DIRECTIONS. PATIENT WHEELED OFF UNIT TO 'S PERSONAL VEHICLE IN STABLE CONDITION WITH ALL BELONGINGS.
--- NOTE | 2019-11-29 16:45 | Discharge Summary ---
PERTINENT HISTORY AND PHYSICAL FINDINGS/CHIEF COMPLAINT: Fall. HISTORY OF PRESENT ILLNESS: The patient is a 59-year-old female, admitting after a fall on 11/26/2019. The patient states she got up too fast. She used her cane at baseline. She fell in May and broke her hip and then not had it fixed yet. She had tripped over a rug in May. PAST MEDICAL HISTORY: Type 2 diabetes mellitus, hypertension, insomnia, neuropathy. PAST SURGICAL HISTORY: Cholecystectomy and hysterectomy. FAMILY HISTORY: Diabetes mellitus in the father and brother. Cancer in the mother, CVA in the grandmother. SOCIAL HISTORY: Alcohol use. Denies tobacco or illicit drug use. ALLERGIES: NO KNOWN ALLERGIES. ADMITTING DIAGNOSES: 1. Left olecranon fracture/left humeral neck fracture. 2. Hypertension. 3. Type 2 diabetes mellitus. 4. Hypernatremia. DISCHARGE DIAGNOSES: 1. Left displaced intra-articular olecranon fracture and ipsilateral proximal humerus surgical neck fracture due to mechanical fall, now status post open reduction and internal fixation left olecranon and left proximal humerus by Dr. Bharath Zarco on 11/28/2019. 2. Uncontrolled hypertension. 3. Controlled type 2 diabetes mellitus. 4. Mild hyponatremia. 5. Thrombocytopenia. 6. Mild hypokalemia. 7. Hypomagnesemia. 8. Acute urinary tract infection, present on arrival, with Streptococcus viridans. Per SILVESTRE [place], the patient to be discharged home from orthopedic standpoint per Dr. Ferguson. The patient states Creactives does not work for her very well. We will send her home on Tylenol #3. Hypertension is likely at least contributed by pain. Continue her home diabetic medications. She is to follow up with Dr. Marquez with Hematology regarding her low platelet count. She did receive transfusion of platelets prior to surgery. Magnesium level was 0.9 on 11/27, after replacement was 1.7. Today, it was 1.3. Thus, replace with two additional g IV. On admission, sodium 129, potassium 3.1, chloride 90, CO2 of 26. BUN 10, creatinine 0.83, estimated GFR greater than 60, glucose 177, calcium 8.8, total bilirubin 1.5. AST 99, ALT 20, alkaline phosphatase 154. WBC 3.35, hemoglobin 10, hematocrit 30.1, platelets 49. Coronavirus was negative. Final urine culture showed Streptococcus viridans. CT of the brain was negative for acute changes. Today, day of discharge, WBC 4.96, hemoglobin 7.8, hematocrit 24.5, platelets 57. Sodium 132, potassium 3.5, chloride 96, CO2 25. BUN 12, creatinine 0.97. GFR 58. Glucose 221, calcium 8.4, magnesium 1.3, total bilirubin 2.1. AST 41, ALT 13, alkaline phosphatase 110. The patient states [facility]. Discharge prescriptions include: 1. Ferrous sulfate 325 mg p.o. b.i.d. 2. Cefuroxime 500 mg p.o. q.12 hours. 3. Tylenol #3 one tablet q.4 hours p.r.n. for pain, quantity #30. The patient is to follow up with Dr. Zarco as directed. Follow up with PCP in 1 to 2 weeks. Follow up with Dr. Marquez in 2 weeks. Dictated by Tony Alvarez NP MD BRANDI Shipman/JAN /[id number]
[2019-11-29] MEDS ORDERED: FERROUS SULFATE 325 MG TAB PO SCH (17:00)
[2019-11-30] MEDS ORDERED: POTASSIUM CHLORIDE 20 MEQ TAB CR PO SCH (09:00)
== END 2019-11-29 17:09 | disposition home or self-care (01) | DRG 493 ==
LOC: ER 10:40 → ERHOLD 13:20 → MED/SURG 14:35
PROVIDERS: ADMIT Internal Medicine; ATTEND Internal Medicine
PROC: 30233R1 Transfusion of Nonautologous Platelets into Peripheral Vein, Percutaneous Approach (ICD-10-PCS; 2019-11-27)
PROC: 0PSL04Z Reposition Left Ulna with Internal Fixation Device, Open Approach (ICD-10-PCS; principal; 2019-11-28 13:00)
PROC: 0PSG04Z Reposition Left Humeral Shaft with Internal Fixation Device, Open Approach (ICD-10-PCS; principal; 2019-11-28 13:00)
DX: S52.032A Displaced fracture of olecranon process with intraarticular extension of left ulna, initial encounter for closed fracture (principal); S42.325A Nondisplaced transverse fracture of shaft of humerus, left arm, initial encounter for closed fracture; E87.1 Hypo-osmolality and hyponatremia; N39.0 Urinary tract infection, site not specified; D69.6 Thrombocytopenia, unspecified; W01.0XXA Fall on same level from slipping, tripping and stumbling without subsequent striking against object, initial encounter; E87.6 Hypokalemia; E80.6 Other disorders of bilirubin metabolism; E11.42 Type 2 diabetes mellitus with diabetic polyneuropathy; I10 Essential (primary) hypertension; G47.00 Insomnia, unspecified; Y93.89 Activity, other specified; Z90.49 Acquired absence of other specified parts of digestive tract; Z90.710 Acquired absence of both cervix and uterus; Z83.3 Family history of diabetes mellitus; Z82.49 Family history of ischemic heart disease and other diseases of the circulatory system; Z87.891 Personal history of nicotine dependence; Z82.3 Family history of stroke; Z80.9 Family history of malignant neoplasm, unspecified; K70.10 Alcoholic hepatitis without ascites; D69.59 Other secondary thrombocytopenia; E83.42 Hypomagnesemia; D50.9 Iron deficiency anemia, unspecified; B95.4 Other streptococcus as the cause of diseases classified elsewhere
CPT/HCPCS: 36415; 70450; 71045; 80053; 81001; 82550; 82553; 82607; 82728; 82747; 82948; 83036; 83735; 84443; 84484; 85025; 85610; 85730; 86850; 86900; 87086; 87635; 93005; 97139; 99284; C1713; J0360; J0690; J0696; J1170; J1644; J2001; J2250; J2270; J2370; J2405; J3010; J3475; J7050; P9034; Q0162

== ENCOUNTER 2020-01-12 18:08 | Inpatient (IN) | payer OTHER ==
[~2020-01-12] VITALS: Ht 160 cm; Wt 72.6 kg
[~2020-01-12 18:08] MED LIST: BENZONATATE100 MG PO; BUSPIRONE HCL5 MG PO; CEFUROXIME250 MG PO; ESIDRIX25 MG PO; FERROUS SULFAT325 MG PO; GABAPENTIN300 MG PO; LOPRESSOR25 MG PO; PIOGLITAZONE HC45 MG PO; TYLENOL WITH C1 EACH PO
--- NOTE | 2020-01-12 19:21 | Emergency Department Note ---
History of Present Illnes History of Present Illness Chief Complaint: General Medicine Complaints History of Present Illness This is a 59 year old female presents stating sent by dr garcia to be admitted for surgery of left elbow, pt has had an infection to left elbow for past couple of weeks, i spoke with dr garcia, he states to admit pt and keep her npo after midnight. pt had surgery to left shoudler and elbow related to a frac ture one month ago. dr garcia does not want antibiotics at this time so he gets a good culture from the specimen he obtains in surgery tomorrow. Historian: Patient Arrival Mode: Car Onset (how long ago): week(s) (2) Location: left elbow Quality: painful, swollen and red Radiation: Reports non-radiation Severity: moderate Onset quality: gradual Duration (how long): week(s) (2) Timing of current episode: constant Progression: worsening Chronicity: new Context: Reports recent surgery (to left shoulder and elbow about one month ago) Relieving factors: none Exacerbating factors: movement Associated symptoms: Reports denies other symptoms Treatments prior to arrival: none Past Medical/Family History Physician Review I have reviewed the patient's past medical and family history. Any updates have been documented here. Past Medical History Recent Fever: No Clinical Suspicion of Infectio: No New/Unexplained Change in Ment: No Past Medical History: Hypertension, Diabetes Past Surgical History: Cholecysctectomy, Hysterectomy Other Surgery: LEFT SHOULDER SURGERY Social History Smoking Cessation: Current every day smoker Counseling Performed: Yes Alcohol Use: None Any Illegal Drug Use: No Other Last Tetanus: UTD Review of Systems Review of Systems Constitutional: Reports no symptoms EENTM: Reports no symptoms Cardiovascular: Reports no symptoms Respiratory: Reports no symptoms Gastrointestinal: Reports no symptoms Genitourinary: Reports no symptoms Musculoskeletal: Reports as per HPI Integumentary: Reports no symptoms Neurological: Reports no symptoms Psychological: Reports no symptoms Endocrine: Reports no symptoms Hematological/Lymphatic: Reports no symptoms Physical Exam Related Data Allergies: Coded Allergies: No Known Drug Allergies (Verified Allergy, Unknown, 11/26/19) Triage Vital Signs Vital Signs Date Time Temp Pulse Resp B/P (MAP) Pulse Ox O2 Delivery O2 Flow Rate FiO2 01/12/20 18:18 97.5 86 18 182/84 98 Physical Exam CONSTITUTIONAL Constitutional: Present well-developed, Present well-nourished HENT HENT: Present normocephalic, Present atraumatic, Present oropharynx clear/moist, Present nose normal HENT L/R: Present left ext ear normal, Present right ext ear normal EYES Eyes: Reports PERRL, Reports conjunctivae normal NECK Neck: Present ROM normal PULMONARY Pulmonary: Present effort normal, Present breath sounds normal CARDIOVASCULAR Cardiovascular: Present regular rhythm, Present heart sounds normal, Present capillary refill normal, Present normal rate GASTROINTESTINAL Abdominal: Present soft, Present nontender, Present bowel sounds normal GENITOURINARY Genitourinary: Present exam deferred SKIN Skin: Present warm, Present dry MUSCULOSKELETAL Musculoskeletal: Present ROM normal NEUROLOGICAL Neurological: Present alert, Present oriented x 3, Present no gross motor or sensory deficits PSYCHOLOGICAL Psychological: Present mood/affect normal, Present judgement normal Results Laboratory Laboratory Laboratory Tests Test 01/12/20 19:20 01/12/20 16:25 White Blood Count 4.60 x10e3/uL (4.8-10.8) Red Blood Count 3.06 x10e6/uL (3.6-5.1) Hemoglobin 9.8 g/dL (12.0-16.0) Hematocrit 30.4 % (34.2-44.1) Mean Corpuscular Volume 99.3 fL (81-99) Mean Corpuscular Hemoglobin 32.0 pg (28-32) Mean Corpuscular Hemoglobin Concent 32.2 g/dL (31-35) Red Cell Distribution Width 15.9 % (11.7-14.4) Platelet Count 55 x10e3/uL (140-360) Neutrophils (%) (Auto) 68.7 % (38.7-80.0) Lymphocytes (%) (Auto) 17.0 % (18.0-39.1) Monocytes (%) (Auto) 10.4 % (4.4-11.3) Eosinophils (%) (Auto) 2.6 % (0.0-6.0) Basophils (%) (Auto) 1.1 % (0.0-1.0) Neutrophils # (Auto) 3.2 (2.1-6.9) Lymphocytes # (Auto) 0.8 (1.0-3.2) Monocytes # (Auto) 0.5 (0.2-0.8) Eosinophils # (Auto) 0.1 (0.0-0.4) Basophils # (Auto) 0.1 (0.0-0.1) Absolute Immature Granulocyte (auto 0.01 x10e3/uL (0-0.1) Prothrombin Time 15.6 seconds (11.9-14.5) Prothromb Time International Ratio 1.16 Activated Partial Thromboplast Time 35.7 seconds (23.8-35.5) Sodium Level 126 mmol/L (136-145) Potassium Level 3.1 mmol/L (3.5-5.1) Chloride Level 93 mmol/L (98-107) Carbon Dioxide Level 27 mmol/L (22-29) Anion Gap 9.1 mmol/L (8-16) Blood Urea Nitrogen 12 mg/dL (7-26) Creatinine 0.80 mg/dL (0.57-1.11) Estimat Glomerular Filtration Rate > 60 ML/MIN (60-) BUN/Creatinine Ratio 15 (6-25) Glucose Level 181 mg/dL (74-118) Calcium Level 8.9 mg/dL (8.4-10.2) Total Bilirubin 1.8 mg/dL (0.2-1.2) Aspartate Amino Transf (AST/SGOT) 79 IU/L (5-34) Alanine Aminotransferase (ALT/SGPT) 22 IU/L (0-55) Alkaline Phosphatase 175 IU/L (40-150) Total Protein 7.0 g/dL (6.5-8.1) Albumin 2.9 g/dL (3.5-5.0) Globulin 4.1 g/dL (2.3-3.5) Albumin/Globulin Ratio 0.7 (0.8-2.0) Lab results reviewed: Yes Imaging Imaging results reviewed: Yes Impressions XAMINATION: CHEST SINGLE (PORTABLE) INDICATION: pre op COMPARISON: None FINDINGS: AP view TUBES and LINES: None. LUNGS/PLEURA: Lungs are well inflated. There is no evidence of pneumonia or pulmonary edema.. There is no pleural effusion or pneumothorax. HEART AND MEDIASTINUM: Cardiac size is mildly enlarged. BONES AND SOFT TISSUES: status post plate and screw fixation of the left humeral fracture. No acute osseous lesion. Soft tissues are unremarkable. UPPER ABDOMEN: No free air under the diaphragm. IMPRESSION: No acute thoracic abnormality. Mild cardiomegaly. 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: Interpreted by ED physician Date: Jan 12, 2020 Time: 19:19 Rhythm: sinus rhythm Rate: normal BPM: 78 Conduction: 1st degree ST segments normal: Yes T waves normal: Yes Clinical Impression: non-specific ECG Assessment & Plan Medical Decision Making MDM pt with infection to left elbow, pre op labs ordered i spoke with dr garcia and dr calvin , they state place pt to inpatient Assessment & Plan Final Impression: (1) Infection of left elbow Depart Disposition: ADMITTED Last Vital Signs Date Time Temp Pulse Resp B/P (MAP) Pulse Ox O2 Delivery O2 Flow Rate FiO2 01/12/20 18:18 97.5 86 18 182/84 98 Home Meds Active Scripts Acetaminophen With Codeine (TYLENOL WITH CODEINE #3 TABLET) 1 Each Tablet, 300 MG PO Q4HR PRN for pain for 14 Days, #30 TAB 0 Refills Prov:VIC CORCORAN AUDIO VISUAL COLLECTIONS COORDINATOR 11/29/19 Cefuroxime Axetil (CEFUROXIME) 250 Mg Tablet, 500 MG PO Q12H for 10 Days, #20 TAB 0 Refills Prov:VIC CORCORAN AUDIO VISUAL COLLECTIONS COORDINATOR 11/29/19 Ferrous Sulfate (FERROUS SULFATE) 325 Mg Tablet, 325 MG PO BIDWM for 30 Days, #60 TAB 0 Refills Prov:VIC CORCORAN AUDIO VISUAL COLLECTIONS COORDINATOR 11/29/19 Reported Medications Hydrochlorothiazide* (ESIDRIX*) 25 Mg Tab 11/26/19 Metoprolol Tartrate (LOPRESSOR) 25 Mg Tab 11/26/19 Pioglitazone Hcl (PIOGLITAZONE HCL) 45 Mg Tablet, 15 MG PO DAILY, #30 TAB 11/26/19 Buspirone Hcl (BUSPIRONE HCL) 5 Mg Tablet, 15 MG PO PRN, #60 TAB 11/26/19 Gabapentin (GABAPENTIN) 300 Mg Capsule, 300 MG PO TID, #60 CAP 11/26/19 DONALDO TIRADO MD Jan 12, 2020 19:21
[2020-01-12 19:46] LABS: BASOPHILS # (AUTO) 0.1 (0.0-0.1); BASOPHILS % 1.1 % (0.0-1.0); EOSINOPHILS # (AUTO) 0.1 (0.0-0.4); EOSINOPHILS % 2.6 % (0.0-6.0); HEMATOCRIT 30.4 % (34.2-44.1); HEMOGLOBIN 9.8 g/dL (12.0-16.0); LYMPHOCYTES # (AUTO) 0.8 (1.0-3.2); MEAN CORPUSCULAR HGB CONC 32.2 g/dL (31-35); MEAN CORPUSCULAR VOLUME 99.3 fL (81-99); MONOCYTES # (AUTO) 0.5 (0.2-0.8); MONOCYTES % 10.4 % (4.4-11.3); NEUTROPHILS # (AUTO) 3.2 (2.1-6.9); NEUTROPHILS % 68.7 % (38.7-80.0); PLATELET COUNT 55 x10e3/uL (140-360); RED BLOOD COUNT 3.06 x10e6/uL (3.6-5.1); RED CELL DISTRIBUTION WIDTH 15.9 % (11.7-14.4)
[2020-01-12 20:00] VITALS: BP 180/74
[2020-01-12 20:07] LABS: ALANINE AMINOTRANSFERASE 22 IU/L (0-55); ALBUMIN 2.9 g/dL (3.5-5.0); ALBUMIN/GLOBULIN RATIO 0.7 (0.8-2.0); ALKALINE PHOSPHATASE 175 IU/L (40-150); ANION GAP 9.1 mmol/L (8-16); BLOOD UREA NITROGEN 12 mg/dL (7-26); BUN/CREATININE RATIO 15 (6-25); CALCIUM 8.9 mg/dL (8.4-10.2); CARBON DIOXIDE 27 mmol/L (22-29); CHLORIDE 93 mmol/L (98-107); EST GLOMERULAR FILTRATION RATE > 60 ML/MIN (60-); GLUCOSE 181 mg/dL (74-118); POTASSIUM 3.1 mmol/L (3.5-5.1); SODIUM 126 mmol/L (136-145)
[2020-01-12 20:33] LABS: INR 1.16; PROTHROMBIN TIME 15.6 seconds (11.9-14.5)
[2020-01-12 20:34] LABS: PARTIAL THROMBOPLASTIN TIME 35.7 seconds (23.8-35.5)
--- NOTE | 2020-01-12 20:45 | Diagnostic Imaging Report ---
EXAMINATION: CHEST SINGLE (PORTABLE) INDICATION: pre op COMPARISON: None FINDINGS: AP view TUBES and LINES: None. LUNGS/PLEURA: Lungs are well inflated. There is no evidence of pneumonia or pulmonary edema.. There is no pleural effusion or pneumothorax. HEART AND MEDIASTINUM: Cardiac size is mildly enlarged. BONES AND SOFT TISSUES: status post plate and screw fixation of the left humeral fracture. No acute osseous lesion. Soft tissues are unremarkable. UPPER ABDOMEN: No free air under the diaphragm. IMPRESSION: No acute thoracic abnormality. Mild cardiomegaly. Signed by: Hong Verde MD on 01/12/2020 8:41 PM
--- NOTE | 2020-01-12 20:59 | NUR ---
ORTHOPEDIC CONSULTATION ORTHOPEDIC CONSULTATION 59 year old left hand dominant female presents to the ED after a mechanical fall with left arm pain in November. She underwent a left olecranon ORIF and proximal humerus ORIF on 11/28/2019 by me. Her post operative course has been uneventful until today. She presented to my office for a post operative vist wit h complaints of an ulcer that has appeared on her left elbow. She denies fevers or chills. Her pain has been controlled. She has been leaning on her elbow and states issa she falls or slides in bed, she lands on that side. She denies numbness, paresthesias and loss of distal motor function. Denies pain in any other extremity. PMdhx: HTN, DM, Right Femur Fracture Allergies: NKDA SurgHx: Terrie, Hysterectomy FamHx: Non-contributory SocHx: Former Tob (Quit 10 years ago), EtOH 3 drinks a day- 3 times a week, Neg Drugs VS T 97.3 HR 72 RR 20 BP 148/72 O2 98% Left Upper Extremity In Splint Sling clean dry and intact 1 cm open ulceration with visible underlying olecranon plate Motor: + AIN, PIN, Radial, Median, Ulnar Sensation intact to light touch Pulses + Radial, good capillary refill Compartments soft Xrays in office demonstrated olecranon fracture healing well with hardware in good position. 59 year old s/p Left Olecranon & Proximal Humerus ORIF (11/28/2019) with now exposed hardware of the left olecranon Plan for I&D and removal of hardware tomorrow NPO except meds Hold anticoagulation after midnight IVF while NPO Analgesics Continue Splint DAISHA Zarco, DO [facility] [place].
[2020-01-12 21:49] LABS: CLARITY,URINE CLEAR (CLEAR); COLOR,URINE YELLOW (YELLOW); KETONES,URINE NEGATIVE (NEGATIVE); LEUKOCYTE ESTERASE ,URINE NEGATIVE (NEGATIVE); NITRITE,URINE NEGATIVE (NEGATIVE); PROTEIN,URINE DIPSTICK NEGATIVE (NEGATIVE)
[2020-01-12 21:50] LABS: BILIRUBIN,URINE NEGATIVE (NEGATIVE); URINE UROBILINOGEN 0.2 mg/dL (0.2 - 1)
[2020-01-12] MEDS ORDERED: ONDANSETRON HCL INJ 2MG/ML 2ML 2 MG/ML VIAL IV PRN (22:00)
[2020-01-12] MEDS ORDERED: MORPHINE SULFATE 2 MG/ML SYR 1ML IV PRN (22:00)
[2020-01-12 22:02] LABS: EPITHELIAL CELLS,URINE RARE /LPF
--- NOTE | 2020-01-12 22:30 | NUR ---
Pt admitted to room 289 via w/c from home. Pt alert and orient to name, hospital, and diagnosis: left arm infection. Pt c/o mild pain to left shoulder. Pt has yolanda wrap and sling to left elbow. Steady gait. Last BM 01/11 with blood. Denies dysuria, urine clear. Pt oriented to room, call light within reach. Will continue to monitor.
[2020-01-12 23:01] VITALS: BP 180/74
[2020-01-12 23:02] VITALS: BP 180/74
[2020-01-12] MEDS: KCL 20MEQ/.9 SOD CHL 1,000 ML IV SCH (23:45)
[2020-01-13] VITALS (7 sets, daily range): BP systolic 132–171; BP diastolic 55–71
[2020-01-13] MEDS: MORPHINE SULFATE INJ 4 MG/ML INJ 1ML IV PRN ×2 (00:50→05:00)
--- NOTE | 2020-01-13 07:13 | NUR ---
Pt lying in bed, no acute distress noted. Report given to morning nurse.
--- NOTE | 2020-01-13 07:35 | NUR ---
PATIENT IN BED RESTING WITH NO S/S OF DISTRESS. DRESSING INTACT TO LEFT ELBOW, HEALING INCISION TO LEFT ELBOW. BED IN LOWER POSITION, CALL LIGHT AT REACH.
[2020-01-13] MEDS: KCL 20MEQ/.9 SOD CHL 1,000 ML IV SCH (09:39)
[2020-01-13] MEDS ORDERED: DEXTROSE 50% SYRINGE 50 ML IV PRN (09:45)
[2020-01-13] MEDS ORDERED: BUSPIRONE HCL 5 MG TAB PO PRN (09:45)
[2020-01-13] MEDS ORDERED: ACETAMINOPHEN 325 MG TAB PO PRN (09:45)
--- NOTE | 2020-01-13 10:30 | NUR ---
PATIENT OFF UNIT TO OR.
[2020-01-13] MEDS ORDERED: VANCOMYCIN HCL 1 GM VIAL ONE ×2 (10:43→12:12)
[2020-01-13] MEDS ORDERED: BUPIVACAINE HCL 0.5% INJ 30 ML VIAL INJ ONE (10:43)
[2020-01-13] MEDS ORDERED: LIDOCAINE HCL 2% LOCAL INJ 5 ML SDV VIAL INJ ONE (11:21)
[2020-01-13] MEDS ORDERED: ONDANSETRON HCL INJ 2MG/ML 2ML 2 MG/ML VIAL ONE (11:21)
[2020-01-13] MEDS ORDERED: SEVOFLURANE INHAL SOLN 250 ML PEN BTL ONE (11:21)
[2020-01-13] MEDS ORDERED: EPHEDRINE SULFATE INJ 50 MG/ML VIAL ONE (11:21)
[2020-01-13] MEDS ORDERED: CEFAZOLIN SOD 1 GM VIAL ONE ×2 (11:21→12:04)
[2020-01-13] MEDS ORDERED: PROPOFOL IV EMULSION 10 MG/ML 20 ML VIAL ONE (11:21)
[2020-01-13] MEDS: INSULIN LISPRO 100 UNIT/1 ML 3ML VIAL SQ SCH ×3 (11:30→21:00)
--- NOTE | 2020-01-13 13:05 | NUR ---
ORTHOPEDIC OPERATIVE NOTE PREOPERATIVE DIAGNOSES: Left Displaced Intra-articular Olecranon Fracture s/p ORIF with now exposed hardware POSTOPERATIVE DIAGNOSES: Left Displaced Intra-articular Olecranon Fracture s/p ORIF with now exposed hardware PROCEDURE PERFORMED:Left Olecranon Removal of Hardware, Irrigation & Debridement, Flouroscopic Interpretation, ANESTHESIA: General. SURGEON: Eufemia Zarco DO CONFIGURATION MANAGEMENT CONSULTANT: LAMBERT PolkA (required due to complexity of case) ESTIMATED BLOOD LOSS:10cc. COMPLICATIONS: None. SPECIMEN: Olecranon: Stryker3 Hole Left Variax Olecranon Plate, 3.4 Locking Screws x 6, 3.5 Non-Locking Screw x 1, Bone & Bursa TOURNIQUET TIME: 40 min BRIEF HISTORY:59 year old left hand dominant female who had a mechanical fall and sustained a displaced olecranon fracture and ipsilateral proximal humerus fr acture.She underwent ORIF. During post op week 6 she presented to the office w ith complaints of an ulcer on the posteromedial portion of her elbow. The plate was exposed. She was instructed to go to the ED for I&D, Removal of Hardware and IV Antibiotics PROCEDURE: The patient was taken to the operative suite, placed on the operative field.Anesthesia provided general endotracheal anesthesia. Once adequately sedated, the patient was placedin supine position. Care was ensured that she was well positioned, adequately secured and padded. A tourniquet was applied and theLeftupper extremity was then prepped and draped in the usual sterile fashion. Using an esmarch and tourniquet, the extremity was exsanguinated. A direct posterior approach was used to dissect to the triceps fascia and subcutaneous border of the ulna. The wound was nearly 2 cm from the incision site. The hardware was removed, the screw holes were debrided. The wound was thoroughly irrigated of 6 L, the wound edges were debrided to a healthy border. Fracture appeared stable and healed. The elbow was taken through a range of motion under flouroscopic interpretation demonstrating stable healing. 1 gm of Vancomycin powder was sprinkled over the bone. The incision we re closed with 3-0 prolene. The incision was covered with xeroform, 4x4, ABD pads and placed in a splint in extension. DISPOSITION: The patient tolerated well and transferred to Postanesthesia Care Unit in satisfactory condition.
[2020-01-13] MEDS ORDERED: HYDROMORPHONE 1MG/1ML INJ ONE (13:11)
--- NOTE | 2020-01-13 13:22 | NUR ---
CONSULT FOR WOUND CARE MADE FOR LEFT ELBOW FULLTHICKNESS WOUND PATIENT TO SURG FOR I&D AND HARDWARE REMOVAL NURSING STATES RECONSULT WILL BE MADE IF RECOMMENDATIONS NEEDED POST SURGICALLY Addendum: 01/13/20 at 1325 by Jarret Amin RN Amended: Links added.
--- NOTE | 2020-01-13 13:34 | NUR ---
PATIENT BACK TO UNIT FROM OR. HAD A I/D OF LEFT ELBOW WITH REMOVAL OF HARD PHELPS. SPLINT IN PLACE WITH ALYSSA WRAP, DRY AND INTACT. STATED THAT SHE IS HUNGRY, KITCHEN CALLED AND NOTIFIED, PATIENT WILL RECEIVE A TRAY. V/S 97.5-83-20-127/52 AND 96% ON RA.
--- NOTE | 2020-01-13 14:44 | NUR ---
RECEIVED ORDER FOR HOME HEALTH AND PT. ATTEMPTED TO SPEAK W THE PT, BUT SHE WAS EATING AND ASKED THAT I COME BACK LATER. GAVE A FEW CHOICES. WILL F/U
[2020-01-13] MEDS ORDERED: FENTANYL CITRATE/PF 100MCG/2 ML INJ ONE (15:08)
[2020-01-13] MEDS ORDERED: MIDAZOLAM HCL 2 MG/2 ML VIAL ONE (15:08)
--- NOTE | 2020-01-13 15:25 | NUR ---
CM ATTEMPTED TO MEET W THE PT AGAIN, BUT SHE WAS GETTING AN IV PLACED. WILL F/U.
[2020-01-13] MEDS: GABAPENTIN 300 MG CAP PO SCH ×2 (15:30→20:06)
--- NOTE | 2020-01-13 17:00 | NUR ---
ICE COLD APPLIED TO LEFT ELBOW ORDERED. PATIENT TOLERATED PROCEDURE WELL. CALL LIGHT AT REACH.
[2020-01-13] MEDS: VANCOMYCIN 1GM/NS 250 ML 250 ML IV SCH (17:22)
[2020-01-13] MEDS: FAMOTIDINE 20 MG/2 ML VIAL IV SCH (17:22)
[2020-01-13] MEDS: FERROUS SULFATE 325 MG TAB PO SCH (17:23)
[2020-01-13] MEDS: METOPROLOL TARTRATE 25 MG TAB PO SCH (17:25)
--- NOTE | 2020-01-13 19:21 | NUR ---
BED SIDE SHIFT REPORT GIVEN TO ON COMING NURSE.
[2020-01-13] MEDS: HYDROCODONE/APAP 7.5MG-325MG 1 EA TAB PO PRN (20:06)
[2020-01-14] VITALS (9 sets, daily range): BP systolic 120–158; BP diastolic 45–78
[2020-01-14] MEDS: KCL 20MEQ/.9 SOD CHL 1,000 ML IV SCH ×2 (00:12→09:00)
[2020-01-14] MEDS: HYDROCODONE/APAP 7.5MG-325MG 1 EA TAB PO PRN ×2 (00:21→11:05)
[2020-01-14] MEDS: MORPHINE SULFATE 2 MG/ML SYR 1ML IV PRN ×4 (03:24→20:30)
[2020-01-14] MEDS: VANCOMYCIN 1GM/NS 250 ML 250 ML IV SCH (05:47)
[2020-01-14 06:46] LABS: BASOPHILS % 0.6 % (0.0-1.0); EOSINOPHILS # (AUTO) 0.2 (0.0-0.4); EOSINOPHILS % 3.1 % (0.0-6.0); HEMATOCRIT 32.6 % (34.2-44.1); HEMOGLOBIN 10.1 g/dL (12.0-16.0); LYMPHOCYTES # (AUTO) 1.3 (1.0-3.2); LYMPHOCYTES % 19.5 % (18.0-39.1); MEAN CORPUSCULAR HEMOGLOBIN 32.8 pg (28-32); MEAN CORPUSCULAR VOLUME 105.8 fL (81-99); MONOCYTES # (AUTO) 0.6 (0.2-0.8); MONOCYTES % 9.7 % (4.4-11.3); NEUTROPHILS # (AUTO) 4.4 (2.1-6.9); NEUTROPHILS % 66.8 % (38.7-80.0); PLATELET COUNT 50 x10e3/uL (140-360); RED BLOOD COUNT 3.08 x10e6/uL (3.6-5.1)
[2020-01-14 07:08] LABS: ALANINE AMINOTRANSFERASE 18 IU/L (0-55); ALBUMIN 2.6 g/dL (3.5-5.0); ALBUMIN/GLOBULIN RATIO 0.7 (0.8-2.0); ALKALINE PHOSPHATASE 148 IU/L (40-150); ANION GAP 10.8 mmol/L (8-16); BLOOD UREA NITROGEN 11 mg/dL (7-26); BUN/CREATININE RATIO 13 (6-25); CALCIUM 8.4 mg/dL (8.4-10.2); CARBON DIOXIDE 23 mmol/L (22-29); CHLORIDE 104 mmol/L (98-107); CREATININE, SERUM 0.82 mg/dL (0.57-1.11); EST GLOMERULAR FILTRATION RATE > 60 ML/MIN (60-); GLUCOSE 132 mg/dL (74-118); POTASSIUM 3.8 mmol/L (3.5-5.1); SODIUM 134 mmol/L (136-145)
[2020-01-14 07:14] LABS: MAGNESIUM 1.1 MG/DL (1.3-2.1)
--- NOTE | 2020-01-14 07:15 | NUR ---
REPORT GIVEN TO DAYSHIFT NURSE. PATIENT IN STABLE CONDITION. NO SIGNS OF IV INFILTRATION. BED LOCKED AND IN LOW POSITION. CALL LIGHT WITHIN REACH. BED ALARM ACTIVATED.
--- NOTE | 2020-01-14 07:26 | NUR ---
PATIENT IN BED RESTING WITH EYES CLOSED, NO DISTRESS NOTED. SPLINT TO LEFT ELBOW INTACT, SCD IN PLACE. BED IN LOWER POSITION, CALL LIGHT AT REACH.
[2020-01-14] MEDS: INSULIN LISPRO 100 UNIT/1 ML 3ML VIAL SQ SCH ×4 (07:30→21:00)
[2020-01-14] MEDS: HYDROCHLOROTHIAZIDE 25 MG TAB PO SCH (09:08)
[2020-01-14] MEDS: FAMOTIDINE 20 MG/2 ML VIAL IV SCH ×2 (09:08→17:09)
[2020-01-14] MEDS: FERROUS SULFATE 325 MG TAB PO SCH ×2 (09:08→17:09)
[2020-01-14] MEDS: METOPROLOL TARTRATE 25 MG TAB PO SCH ×2 (09:09→17:00)
[2020-01-14] MEDS: GABAPENTIN 300 MG CAP PO SCH ×3 (09:09→21:03)
--- NOTE | 2020-01-14 09:44 | NUR ---
SPOKE WITH ELECTRICITY TRADER REGARDING ABNORMAL LAB RESULT, NEW ORDER RECEIVED.
[2020-01-14] MEDS ORDERED: MAGNESIUM SULFATE 2GM/50ML 100 ML IV ONE (09:45)
[2020-01-14] MEDS ORDERED: MAGNESIUM SULFATE 2GM/50ML 50 ML IV ONE (11:00)
--- NOTE | 2020-01-14 11:31 | NUR ---
SPOKE W/ VIC CORCORAN TANNERY WORKER. HE STATES PT MG IS LOW 1.1, AND HE IS CHECKING ON ANTIBIOTIC THAT DR. RUSSELL IS WANTING.
--- NOTE | 2020-01-14 11:40 | NUR ---
PATIENT AMBULATED IN HALLWAY WITH PHYSICAL THERAPY. BACK IN CHAIR WITH CALL LIGHT AT REACH.
--- NOTE | 2020-01-14 15:10 | NUR ---
SPOKE WITH PT RE HOME HEALTH ORDER. PROVIDED LIST OF INNETWORK AGENCIES , SHE SAID SHE WANTS TO TALK TO HER BEFORE SHE CAN GIVE AN ANSWER. SW CHECKED WITH HER LATER, WAS IN THE ROOM. PT SAID SHE AND HER SPOKE ABOUT IT,PT SAID SHE DID NOT WANT HOME HEALTH, SHE HAS TWO DOGS AT HOME, SO SHE IS NOT COMFORTABLE OTHER PEOPLE COMING INTO HER HOME, PLUS SHE PREFERS TO GO TO OUTPATIENT REHAB. VIC CORCORAN NP WAS NOTIFIED.
--- NOTE | 2020-01-14 15:22 | NUR ---
PATIENT C/O PAIN TO LEFT ELBOW. MEDICATED ORDERED, NO FURTHER C/O PAIN. WILL CLOSELY MONITOR.
--- NOTE | 2020-01-14 16:02 | NUR ---
ORTHOPEDICS PROGRESS NOTE Patient seen & examined resting comfortably at bedside. Complains of left elbow pain. No fevers or chills. T 97.9 HR 73 RR 16 BP 142/65 O2 100% Left Elbow In Splint - clean, dry and intact Motor: + AIN, PIN, Radial, Median, Ulnar Sensation grossly intact to light touch Pulses + Radial, good capillary refill Compartments soft Negative calf tenderness WBC 6.52 Hgb 10.1 Hct 32.6 OR - non final cultures Coag Neg Staph s/p Left Olecranon I&D, Removal of Hardware POD #1 Antibiotics as per ID & Medicine Recommend ID Consultation Analgesics Cheryl PARSONS do PROM of shoulder Follow up final cultures Rest, Ice & Elevation. Eufemia Zarco, DO
[2020-01-14] MEDS ORDERED: VANCOMYCIN 1GM/NS 250 ML 250 ML IV ONE (16:15)
--- NOTE | 2020-01-14 18:27 | NUR ---
PATIENT HAS AN ORDER FOR PICC LINE PLACEMENT. SHE SIGNED THE CONSENT, BUT REFUSED THE PICC LINE TO BE PLACED STATING THAT SHE DOES NOT KNOW WHY SHE NEEDS CORRECTION IV ANTIBIOTIC; SHE WANTS TO TALK TO THE DR BEFORE LINE PLACEMENT. DR TUCKER NOTIFIED, HE WILL TALK TO THE PATIENT TOMORROW.
--- NOTE | 2020-01-14 19:09 | NUR ---
BED SIDE SHIFT REPORT GIVEN TO ON COMING NURSE, PATIENT IN BED RESTING WITH CALL LIGHT AT REACH.
--- NOTE | 2020-01-14 20:00 | NUR ---
RECEIVED PT IN BED AOX3 .C/O PAIN . RT FA 20 G S/L ,PT REFUSED TO PUT PICC LINE .PT WANTS TO KNOW WHETHER SHE NEEDS ASSISTED ABT .WAITING TO DR TUCKER TO EXPLAIN CALL LIGHT WITH IN REACH .CONTINUE TO MONITOR
--- NOTE | 2020-01-14 20:15 | NUR ---
pt refused line at this time wants to speak with the md in the morning to make sure she needs the picc line nurse ayse angeles informed
--- NOTE | 2020-01-14 21:31 | Consultation ---
DATE OF CONSULTATION: REASON FOR CONSULTATION: Infection in the elbow. HISTORY OF PRESENT ILLNESS: This is a 59-year-old white female, who was sent by her doctor, Dr. Zarco. The patient, 4 weeks ago, she had left elbow fracture. The patient during the followup had redness and drainage from the wound. The patient came here. She is being admitted. The patient, who is currently lying in bed comfortably during interview. The patient currently has history of neuropathy, osteoarthritis, hypertension, GERD, and diabetes mellitus. PAST SURGICAL HISTORY: As above. ALLERGIES: NKA. SOCIAL HISTORY: There is no smoking, drug abuse, or alcohol abuse. FAMILY HISTORY: Otherwise hypertension. HOME MEDICATIONS: Reviewed. Her medication list reviewed. LABORATORY DATA: Currently, her white count 6.52, hemoglobin of 10. Sodium 134, potassium 3.8 with a creatinine 0.82. The patient underwent surgery. Her wound culture showing coagulase-negative staph. The patient underwent surgery. Removal of the hardware. IMPRESSION: Left olecranon removal of infected hardware, growing coagulase-negative Staph. RECOMMEND: Vancomycin 1 g IV piggyback q.12. Vancomycin trough with the 3rd dose. Recommend add rifampin 300 mg p.o. b.i.d. for the first 2 weeks. Weekly CBC and weekly chem panel. Discussed with the medical team. We will follow. MD STEPHANY Ya/JAN /[id number]
[2020-01-15] VITALS (8 sets, daily range): BP systolic 143–162; BP diastolic 51–82
[2020-01-15] MEDS: MORPHINE SULFATE 2 MG/ML SYR 1ML IV PRN (03:58)
--- NOTE | 2020-01-15 05:17 | NUR ---
PT C/O PAIN DURING THE SHIFT .MEDICATED WITH MORPHINE AND NORCO .PT RESTING .PT REFUSED TO PUT PICC LINE .CALL LIGHT WITH IN [facility] .CONTINUE TO MONITOR
[2020-01-15 06:32] LABS: BASOPHILS # (AUTO) 0.1 (0.0-0.1); BASOPHILS % 0.8 % (0.0-1.0); EOSINOPHILS # (AUTO) 0.3 (0.0-0.4); EOSINOPHILS % 4.3 % (0.0-6.0); HEMATOCRIT 28.7 % (34.2-44.1); HEMOGLOBIN 8.9 g/dL (12.0-16.0); LYMPHOCYTES # (AUTO) 1.1 (1.0-3.2); LYMPHOCYTES % 18.5 % (18.0-39.1); MEAN CORPUSCULAR HEMOGLOBIN 31.6 pg (28-32); MEAN CORPUSCULAR VOLUME 101.8 fL (81-99); MONOCYTES # (AUTO) 0.7 (0.2-0.8); MONOCYTES % 11.5 % (4.4-11.3); NEUTROPHILS # (AUTO) 3.9 (2.1-6.9); NEUTROPHILS % 64.6 % (38.7-80.0); RED BLOOD COUNT 2.82 x10e6/uL (3.6-5.1); RED CELL DISTRIBUTION WIDTH 15.9 % (11.7-14.4)
[2020-01-15 06:48] LABS: PLATELET COUNT 54 x10e3/uL (140-360)
[2020-01-15 06:51] LABS: ANION GAP 12.2 mmol/L (8-16); BLOOD UREA NITROGEN 11 mg/dL (7-26); BUN/CREATININE RATIO 14 (6-25); CALCIUM 8.6 mg/dL (8.4-10.2); CARBON DIOXIDE 24 mmol/L (22-29); CHLORIDE 101 mmol/L (98-107); EST GLOMERULAR FILTRATION RATE > 60 ML/MIN (60-); GLUCOSE 150 mg/dL (74-118); MAGNESIUM 1.7 MG/DL (1.3-2.1); PHOSPHORUS 2.7 MG/DL (2.3-4.7); POTASSIUM 4.2 mmol/L (3.5-5.1); SODIUM 133 mmol/L (136-145)
--- NOTE | 2020-01-15 07:04 | NUR ---
BEDSIDE REPORT GIVEN TO THE ONCOMING NURSE
--- NOTE | 2020-01-15 07:19 | NUR ---
PATIENT AMBULATING IN HALLWAY, NO COMPLAIN VOICED. SPLINT INTACT TO LEFT ELBOW. WILL CLOSELY MONITOR.
[2020-01-15] MEDS: INSULIN LISPRO 100 UNIT/1 ML 3ML VIAL SQ SCH ×4 (07:30→21:00)
[2020-01-15] MEDS: FERROUS SULFATE 325 MG TAB PO SCH ×2 (08:40→17:36)
[2020-01-15] MEDS: HYDROCODONE/APAP 7.5MG-325MG 1 EA TAB PO PRN ×2 (08:41)
[2020-01-15] MEDS: FAMOTIDINE 20 MG/2 ML VIAL IV SCH ×2 (09:11→17:36)
[2020-01-15] MEDS: GABAPENTIN 300 MG CAP PO SCH ×3 (09:12→21:25)
[2020-01-15] MEDS: METOPROLOL TARTRATE 25 MG TAB PO SCH ×2 (09:12→17:37)
[2020-01-15] MEDS: HYDROCHLOROTHIAZIDE 25 MG TAB PO SCH (09:12)
--- NOTE | 2020-01-15 09:13 | NUR ---
Met with Tony Alvarez NP. He stated pt will need a PICC line and Vanco for 8 weeks. CM to follow up on this. Pt is [facility].
[2020-01-15] MEDS ORDERED: MAGNESIUM SULF 1GRAM/DEXTROSE 100 ML IV ONE (09:15)
[2020-01-15] MEDS: VANCOMYCIN 1GM/NS 250 ML 250 ML IV SCH ×2 (09:31→21:24)
[2020-01-15] MEDS: RIFAMPIN 300 MG CAP PO SCH ×2 (09:31→17:36)
--- NOTE | 2020-01-15 12:07 | NUR ---
PATIENT OUT OF BED TO CHAIR EATING HER SNACK. CALL LIGHT AT REACH.
--- NOTE | 2020-01-15 15:05 | NUR ---
PROGRESS NOTE Discussed with patient the results of the cultures from the hardware and need for PICC line as per ID. Patient doing well at this time and is now willing to get PICC line. Continue IV Antibiotics as per ID Plan for dressing change tomorrow and Discharge Planning Eufemia Zarco, DO
--- NOTE | 2020-01-15 15:15 | NUR ---
MD SPOKE WITH PATIENT, SHE OK TO HAVE A PICC LINE PLACED. RADIOLOGY CALLED AND NOTIFIED.
--- NOTE | 2020-01-15 18:27 | Diagnostic Imaging Report ---
EXAMINATION: CHEST XRAY LINE PLACEMENT INDICATION: S/P PICC LINE PLACEMENT COMPARISON: Chest radiograph 01/12/2020. FINDINGS: TUBES and LINES: Interval placement of right arm PICC which terminates in the SVC. LUNGS: Lungs are moderately inflated. Minimal patchy bibasilar opacities, likely atelectasis. There is no evidence of lobar pneumonia or pulmonary edema. Central vascular congestion. PLEURA: No pleural effusion or pneumothorax. HEART AND MEDIASTINUM: The cardiomediastinal silhouette is mildly enlarged. BONES AND SOFT TISSUES: No acute osseous abnormality. Partially seen plate and screw fixation of the left proximal humerus. UPPER ABDOMEN: No free air under the diaphragm. IMPRESSION: Interval placement of right arm PICC which terminates in the SVC. No evidence of pneumothorax. Mild cardiomegaly with central vascular congestion. Signed by: Dr. King Rucker MD on 01/15/2020 6:23 PM
--- NOTE | 2020-01-15 19:52 | NUR ---
RECEIVED PT SITTING ON THE BED .PICC LINE INBRED TODAY .SITE WAS BLEEDING AND WRAP WITH COBAN .FAMILY AT THE BEDSIDE DENIES PAIN .CONTINUE TO MONITOR
[2020-01-15] MEDS ORDERED: SODIUM CHLORIDE 0.9% 250ML 250 ML ONE (22:44)
[2020-01-16] VITALS (10 sets, daily range): BP systolic 106–174; BP diastolic 62–88
--- NOTE | 2020-01-16 00:38 | NUR ---
PT IS CONFUSED AND SHE HAS BROKEN THE IV LINE .PT WAS BLEEDING .TRANSFERRED THE PT TO THE 298 .PT REFUSED TO TAKE INSULIN AND ANXIETY MEDICATION .CALLED THE FAMILY AND CAME AND STAYING IN THE ROOM. SHE WANTS TO TAKE THE PICC LINE AND GO HOME .SHE IS QUIET NOW WITH IN THE ROOM.CHARGE NURSE AND CORPORATE STRATEGIST TALKED TO THE PT .CONTINUE TO MONITOR
--- NOTE | 2020-01-16 05:54 | NUR ---
PT SITTING ON THE BED.QUIETLY .FAMILY AT THE BEDSIDE .CALL LIGHT WITH IN REACH .CONTINUE TO MONITOR
[2020-01-16 05:55] LABS: BASOPHILS % 0.7 % (0.0-1.0); EOSINOPHILS # (AUTO) 0.2 (0.0-0.4); EOSINOPHILS % 2.5 % (0.0-6.0); HEMATOCRIT 27.5 % (34.2-44.1); HEMOGLOBIN 8.7 g/dL (12.0-16.0); LYMPHOCYTES # (AUTO) 0.9 (1.0-3.2); LYMPHOCYTES % 14.2 % (18.0-39.1); MEAN CORPUSCULAR HEMOGLOBIN 31.4 pg (28-32); MEAN CORPUSCULAR HGB CONC 31.6 g/dL (31-35); MEAN CORPUSCULAR VOLUME 99.3 fL (81-99); MONOCYTES # (AUTO) 0.7 (0.2-0.8); MONOCYTES % 12.2 % (4.4-11.3); NEUTROPHILS # (AUTO) 4.2 (2.1-6.9); NEUTROPHILS % 69.7 % (38.7-80.0); PLATELET COUNT 52 x10e3/uL (140-360); RED BLOOD COUNT 2.77 x10e6/uL (3.6-5.1); RED CELL DISTRIBUTION WIDTH 15.4 % (11.7-14.4)
[2020-01-16 06:21] LABS: ALANINE AMINOTRANSFERASE 18 IU/L (0-55); ALBUMIN 2.7 g/dL (3.5-5.0); ALBUMIN/GLOBULIN RATIO 0.7 (0.8-2.0); ALKALINE PHOSPHATASE 158 IU/L (40-150); ANION GAP 10.8 mmol/L (8-16); BLOOD UREA NITROGEN 11 mg/dL (7-26); BUN/CREATININE RATIO 14 (6-25); CALCIUM 8.6 mg/dL (8.4-10.2); CARBON DIOXIDE 24 mmol/L (22-29); CHLORIDE 100 mmol/L (98-107); CREATININE, SERUM 0.77 mg/dL (0.57-1.11); EST GLOMERULAR FILTRATION RATE > 60 ML/MIN (60-); GLUCOSE 152 mg/dL (74-118); MAGNESIUM 1.5 MG/DL (1.3-2.1); POTASSIUM 3.8 mmol/L (3.5-5.1); SODIUM 131 mmol/L (136-145)
--- NOTE | 2020-01-16 07:27 | NUR ---
BEDSIDE REPORT GIVEN TO THE ONCOMING NURSE
[2020-01-16] MEDS: INSULIN LISPRO 100 UNIT/1 ML 3ML VIAL SQ SCH ×4 (07:30→20:35)
[2020-01-16] MEDS: FAMOTIDINE 20 MG/2 ML VIAL IV SCH ×2 (08:30→18:10)
[2020-01-16] MEDS: FERROUS SULFATE 325 MG TAB PO SCH ×2 (08:30→18:10)
[2020-01-16] MEDS ORDERED: MAGNESIUM SULFATE 2GM/50ML 50 ML IV ONE (08:45)
[2020-01-16] MEDS: RIFAMPIN 300 MG CAP PO SCH (09:00)
[2020-01-16] MEDS: HYDROCHLOROTHIAZIDE 25 MG TAB PO SCH (09:00)
[2020-01-16] MEDS: VANCOMYCIN 1GM/NS 250 ML 250 ML IV SCH ×2 (09:00→22:00)
[2020-01-16] MEDS: GABAPENTIN 300 MG CAP PO SCH (09:00)
[2020-01-16] MEDS: METOPROLOL TARTRATE 25 MG TAB PO SCH ×2 (09:00→18:10)
[2020-01-16] MEDS: HYDROCODONE/APAP 5MG-325MG TAB PO PRN ×2 (09:00→13:15)
[2020-01-16] MEDS: AMLODIPINE BESYLATE 5 MG TAB PO SCH (11:30)
--- NOTE | 2020-01-16 11:30 | NUR ---
ORDER RECEIVED FOR REHAB. DISCUSSED PT IN MDR. DISCUSSED W AL AND THE PT. PT STATES SHE WANT TO GO HOME TO SEE HER CHILDREN FIRST. PT WENT BACK AND FORTH STATING SHE WOULD GO, THEN STATES SHE WANTED TO SPEAK W DR. RICHARD FIRST. WILL F/U.
--- NOTE | 2020-01-16 11:38 | Diagnostic Imaging Report ---
EXAM: US ABDOMEN COMPLETE DATE: 01/16/2020 9:21 AM INDICATION: Elevated liver enzymes. COMPARISON: None TECHNIQUE: Transverse and longitudinal patrick scale and color doppler sonographic images of the upper abdomen were obtained. FINDINGS: LIVER 17.0 cm in the right midclavicular line. Normal echogenicity of the liver with nodular surface contour, no masses. SPLEEN 15.4 cm in maximum diameter. Normal echogenicity, no masses. GALLBLADDER Status post cholecystectomy. BILE DUCTS No intra nor extra-hepatic biliary dilation. Common bile duct measures 4mm PANCREAS: Visualized portions are normal. RIGHT KIDNEY: 9.4 cm Echogenicity: Normal Collecting System: No hydronephrosis Stones: None Cyst/Mass: None LEFT KIDNEY: 8.9 cm Echogenicity: Normal Collecting System: No hydronephrosis Stones: None Cyst/Mass: None VESSELS: Aorta: Visualized portions are within normal size limits Inferior Vena Cava: Visualized portions are normal Main Portal Vein: 1.3 cm, normal size with hepatopetal flow. FREE FLUID: None IMPRESSION: Hepatomegaly and hepatic cirrhosis. Splenomegaly. Status post cholecystectomy. No hydronephrosis or renal calculi. Signed by: Lester Chatman MD on 01/16/2020 11:34 AM
--- NOTE | 2020-01-16 12:23 | Progress Note ---
DATE: SUBJECTIVE: The patient is seen and evaluated. Available labs and notes reviewed, discussed with staff. The patient has apparently been confused since last night, called to come in and monitor the patient. Still this morning during my exam, the patient seems to be confused and the questions she asks are different a little bit and also complained of hallucinations last night. REVIEW OF SYSTEMS: Otherwise, patient has no nausea, vomiting, fever, chills, chest pain, shortness of breath, headache, rash, dysuria, or polyuria. OBJECTIVE: VITAL SIGNS: Temperature 98.1, pulse of 84, respirations 18, blood pressure 155/76. LABORATORY STUDIES: White count of 5.90, hemoglobin 8.7, platelets 52. Sodium 131, potassium 3.8, creatinine 0.77, AST 56, improved, ALT 158, up from 148 with total bilirubin of 3.9 up from 1.6. Magnesium level was 1.5. RADIOLOGY STUDIES: Abdominal ultrasound is pending. MICROBIOLOGY: Wound culture, Staph hominis. GENERAL: The patient is alert and oriented, but at the same time confused with hallucination apparently last night. CV: S1 and S2. CHEST: Equal expansion. Clear to auscultation. No acute distress. ABDOMEN: Soft, nontender. No distention. HEENT: Moist. No pallor. No JVD. EXTREMITIES: Right upper extremity with Marlon wrap. The patient has a left upper extremity wrapped with Marlon wrap and she has a PICC line in the right upper extremity. ASSESSMENT/PLAN: 1. Status post removal of left olecranon infected hardware. 2. Culture showed coag-negative staph. See above. 3. Altered mental status/hallucination. 4. Elevated liver enzymes. 5. Diabetes. 6. Neuropathy. 7. The patient is on rifampin and vancomycin IV. We will hold rifampin. Other medications noted including Neurontin. Monitor the patient's altered mental status. Further management of this patient is based on daily findings, laboratory and physical examination. Follow with abdominal ultrasound. Dictated by Hong Machado PA-C (Al) Stephani Coppola MD /MODL /[id number]
--- NOTE | 2020-01-16 13:26 | NUR ---
ORTHOPEDIC PROGRESS NOTE Patient seen & examined, pain controlled. No fevers or chills. VS 97. HR 71 RR 18 BP 158/66 O2 98% Left Elbow in splint- Dressing & splint clean, dry and intact Incision healing well, sutures in place Motor: + AIN, PIN, Radial, Median, Ulnar Sensation grossly intact Pulses + Radial, good capillary refill Compartments soft 59 yo F s/p Removal of Hardware & Irrigation & Debridement of Left Olecranon POD#3 Antibiotics as per ID Analgesics PRN NWB LUE Rest, Ice & Elevation Keep splint clean, dry and intact until follow up Follow up in office in 1 week. Patient compliance and mentation is a concern. If patient will not go to rehab, may require home health. Patient orthopedically stable for discharge Eufemia Zarco, DO [facility] [place].
--- NOTE | 2020-01-16 17:35 | NUR ---
DONNELL CONFIRMED THE PT DID NOT WANT REHAB AFTER SPEAKING W DR. ROBERSON. CONTACTED JESSICA TUCKER AND ORDERS GIVEN FOR HOME IV ABX. MET W THE PT AT THE BEDSIDE. CHOICE WAS PROVIDED. PT CHOSE [facility] OFF: [phone] / FAX: [phone]. CHOICE LETTER WAS SIGNED. COPY TO CHART REFERRAL WAS FAXED.
--- NOTE | 2020-01-16 17:38 | NUR ---
RECEIVED CALL FROM [employer] CONFIRMING REFERRAL WAS RECEIVED. WILL F/U TOMORROW IF APPROVED.
--- NOTE | 2020-01-16 19:15 | NUR ---
Received the patient in report.walking in the [address].
[2020-01-16] MEDS: HYDROCODONE/APAP 7.5MG-325MG 1 EA TAB PO PRN (20:21)
--- NOTE | 2020-01-16 20:21 | NUR ---
PAIN VOICED TO LEFT ARM 03/29.ASSESSMENT DONE.LEFT ARM IS SUPPORTED WITH SPLINT.DRESSING IS DRY.MEDICATED WITH NORCO 7.5 MG PO.PHONE AND CALL LIGHT WITHIN REACH. INSTRUCTED TO CALL FOR ASSISTANCE NEEDED.PATIENT REFUSED TO WEAR YELLOW SOCKS AND PUT BED ALARM ON.PATIENT WAS WEARING HER OWN SOCKS.PATIENT STATED THAT"I AM OKAY .DON'T PUT BED ALARM ON AND I DON'T LIKE YELLOW SOCKS".KEEP MONITOR THE PATIENT.
--- NOTE | 2020-01-16 21:00 | NUR ---
pt yelling out. housekeeper head and pct entered rm. housekeeper head and pct requesting help. this nurse entered rm to assist with pt, upon assistance pt found on floor. x2 assist to get pt up and then assisted to bed. primary nurse made aware.
--- NOTE | 2020-01-16 21:08 | NUR ---
spoke to lab regarding results. primary nurse made aware.
--- NOTE | 2020-01-16 21:15 | Consultation ---
DATE OF CONSULTATION: 01/16/[address] Christie for this consultation. HISTORY OF PRESENT ILLNESS: A very wonderful 59-year-old female with a past medical history include diabetes, hypertension, neuropathy, currently in hospital with left elbow wound. She had left elbow ORIF recently. She had recent history of fall and injured her elbow. No fever or chills reported. She does feel fatigued, tired, and lethargic. Workup shows persistent anemia and thrombocytopenia. She had hemoglobin of 8.7 this morning. Platelet count went down to 52. Coagulation profile was mildly impaired. Kidney function was normal. She has slightly elevated AST. Ultrasound of the abdomen shows hepatomegaly with hepatic cirrhosis and splenomegaly. She denies history of any GI bleed. She is following ID service right now. Initial impression, left olecranon infected hardware, status post removal. She is on vancomycin and rifampin. PAST MEDICAL HISTORY: Diabetes, hypertension, neuropathy. ALLERGIES: NURSING LIST. MEDICATIONS: List reviewed. SOCIAL HISTORY: No current smoking. She has a positive history of alcohol. REVIEW OF SYSTEMS: A 12-point review as per HPI. PHYSICAL EXAMINATION: GENERAL: Alert, awake, communicative, obese. HEENT: Normocephalic, atraumatic. Sclerae pale. Conjunctiva clear. NECK: Supple. CHEST: Decreased breath sounds in the bases. CARDIOVASCULAR: Regular rate and rhythm. ABDOMEN: Soft. EXTREMITIES: No edema. LABS AND IMAGING: Reviewed. ASSESSMENT AND PLAN: The patient with history of multiple medical conditions, currently in hospital with infected hardware, status post removal. Currently, on antibiotic treatment. She also has persistent anemia and thrombocytopenia. Thrombocytopenia, likely related with chronic liver disease with liver cirrhosis and splenomegaly. The patient currently has no sign of any bleeding. Recommendation close observation. Anemia. Kidney functions are normal. MCV is elevated. Multifactorial. We will check complete anemia workup. Further recommendation and treatment as per workup. Avoid frequent blood draw. We will monitor the patient very closely. We will continue to monitor patient. MD KINDRA Childers/JAN /[id number]
--- NOTE | 2020-01-16 22:40 | Diagnostic Imaging Report ---
Bilateral knees - 3 view(s) each HISTORY: Pain. COMPARISON: None available. FINDINGS: RIGHT: No displaced fracture. The osseous alignment is within normal limits. Mild tricompartmental joint space narrowing. The soft tissues appear unremarkable. LEFT: No displaced fracture. The osseous alignment is within normal limits. Mild tricompartmental joint space narrowing. The soft tissues appear unremarkable. IMPRESSION: No acute radiographic abnormality of either knee. Signed by: Robson Benjamin MD on 01/16/2020 10:37 PM
--- NOTE | 2020-01-16 23:06 | NUR ---
Upon assessment patient is alert but confused.patient stated that"cell phone fell on the floor.she was trying to find out cellphone". skin tear noted to right johnson.bandage applied.patient stated that"bilateral knees hit on the floor".no wound noted to darien.knees.notified to end packer Prince goins and .md garcia ordered for darien.knee xray.smokehouse operator called family member.notified to smokehouse operator about sitter.now sitter with patient .encouraged to wear yellow socks .put bed alarm on.keep monitor the patient.
[2020-01-17] VITALS (9 sets, daily range): BP systolic 132–173; BP diastolic 53–88
--- NOTE | 2020-01-17 02:00 | NUR ---
Patient is resting .sitter with her.
--- NOTE | 2020-01-17 05:00 | NUR ---
URINE SENT TO THE LAB.
[2020-01-17] MEDS: HYDROCODONE/APAP 5MG-325MG TAB PO PRN ×2 (05:39→20:17)
[2020-01-17 06:11] LABS: BASOPHILS % 0.6 % (0.0-1.0); EOSINOPHILS # (AUTO) 0.3 (0.0-0.4); EOSINOPHILS % 5.4 % (0.0-6.0); HEMATOCRIT 26.3 % (34.2-44.1); HEMOGLOBIN 8.5 g/dL (12.0-16.0); LYMPHOCYTES # (AUTO) 0.9 (1.0-3.2); LYMPHOCYTES % 16.4 % (18.0-39.1); MEAN CORPUSCULAR HEMOGLOBIN 32.2 pg (28-32); MEAN CORPUSCULAR HGB CONC 32.3 g/dL (31-35); MEAN CORPUSCULAR VOLUME 99.6 fL (81-99); MONOCYTES # (AUTO) 0.7 (0.2-0.8); MONOCYTES % 12.8 % (4.4-11.3); NEUTROPHILS # (AUTO) 3.5 (2.1-6.9); NEUTROPHILS % 64.6 % (38.7-80.0); PLATELET COUNT 58 x10e3/uL (140-360); RED BLOOD COUNT 2.64 x10e6/uL (3.6-5.1); RED CELL DISTRIBUTION WIDTH 15.5 % (11.7-14.4)
[2020-01-17 06:22] LABS: ALANINE AMINOTRANSFERASE 18 IU/L (0-55); ALBUMIN 2.5 g/dL (3.5-5.0); ALBUMIN/GLOBULIN RATIO 0.7 (0.8-2.0); ALKALINE PHOSPHATASE 159 IU/L (40-150); ANION GAP 10.4 mmol/L (8-16); BLOOD UREA NITROGEN 9 mg/dL (7-26); BUN/CREATININE RATIO 11 (6-25); CALCIUM 8.9 mg/dL (8.4-10.2); CARBON DIOXIDE 23 mmol/L (22-29); CHLORIDE 100 mmol/L (98-107); EST GLOMERULAR FILTRATION RATE > 60 ML/MIN (60-); GLUCOSE 194 mg/dL (74-118); MAGNESIUM 1.6 MG/DL (1.3-2.1); OSMOLALITY,SERUM 265 mOsm/kg (278-305); POTASSIUM 3.4 mmol/L (3.5-5.1); SODIUM 130 mmol/L (136-145)
--- NOTE | 2020-01-17 07:00 | NUR ---
REPORT GIVEN TO ONCOMING RN.STABLE CONDITION.
--- NOTE | 2020-01-17 07:20 | NUR ---
PATIENT IS AWAKE, ALERT TO SELF AND PLACE, AND IS IN STABLE CONDITION WITH NO S/S OF RESPIRATORY DISTRESS. NO PAIN VOICED. CAST/ALYSSA BANDAGE NOTED TO LEFT UPPER EXTREMITY. SKIN TEAR NOTED TO RIGHT CALF/LOWER EXTREMITY- DRESSING APPLIED, MINIMUM DRAINAGE NOTED. CALL LIGHT IS WITHIN REACH, PATIENT INSTRUCTED TO CALL FOR ASSISTANCE NEEDED.
[2020-01-17] MEDS: INSULIN LISPRO 100 UNIT/1 ML 3ML VIAL SQ SCH ×4 (07:30→20:50)
[2020-01-17] MEDS: VANCOMYCIN 1GM/NS 250 ML 250 ML IV SCH ×2 (08:46→21:07)
[2020-01-17] MEDS: METOPROLOL TARTRATE 25 MG TAB PO SCH ×2 (08:46→16:01)
[2020-01-17] MEDS: HYDROCHLOROTHIAZIDE 25 MG TAB PO SCH (08:46)
[2020-01-17] MEDS: FERROUS SULFATE 325 MG TAB PO SCH ×2 (08:46→16:00)
[2020-01-17] MEDS: FAMOTIDINE 20 MG/2 ML VIAL IV SCH ×2 (08:46→16:00)
[2020-01-17] MEDS: AMLODIPINE BESYLATE 5 MG TAB PO SCH (08:46)
--- NOTE | 2020-01-17 09:55 | NUR ---
CALL RECEIVED FROM [facility]. STATES THE PT IS COVERED AT 100%. STATES THEY ARE STILL WORKING ON GETTING A HOME HEALTH AGENCY. WE WILL F/U ONCE HH FOUND. PLAN DC HOME.
[2020-01-17] MEDS ORDERED: MAGNESIUM SULFATE 2GM/50ML 50 ML IV ONE (10:15)
--- NOTE | 2020-01-17 10:53 | Progress Note ---
DATE: SUBJECTIVE: The patient is seen and evaluated. Discussed with the nurse. Remains confused. The patient currently with the sitter. The patient denied nausea, vomiting, fever, chills, chest pain, shortness of breath. The patient states that the pain is controlled with medication and she wants to go home. PHYSICAL EXAMINATION: VITAL SIGNS: Temperature 97.3, pulse 74, respirations 18, and blood pressure 173/79. GENERAL: Alert and oriented, no acute distress. CV: S1 and S2. CHEST: Equal expansion. Clear to auscultation. No acute distress. ABDOMEN: Soft and nontender. No distention. HEENT: Moist. No pallor. No JVD. EXTREMITIES: Left upper extremity surgical wound dressed on local care. The patient with right upper extremity PICC line. MEDICATIONS: Medication list reviewed. From ID point of view, the patient is on vancomycin IV. LABORATORY STUDIES: Vancomycin trough 18.4 on 01/15. On 01/17/2020, white count 5.37, hemoglobin 8.5, platelet 58. The patient was admitted with a platelet count of 55. Sodium 130, potassium 3.4, creatinine 0.8. Serology; coronavirus PCR not detected on 01/12/2020. MICROBIOLOGY: Wound culture/bone culture showed Staph hominis. RADIOLOGY STUDIES: The patient had x-ray of bilateral knees secondary to pain, which showed no acute radiographic abnormalities of either knee. ASSESSMENT AND PLAN: 1. Status post removal of the left olecranon infected hardware. 2. Altered mental status/hallucination. 3. Elevated liver enzymes. No recheck available. 4. Pain of left upper extremity at the surgical site. 5. Thrombocytopenia. 6. Neuropathy. 7. Diabetes. 8. Rifampin was stopped yesterday secondary to altered mental status/hallucination and elevated LFT, continue vancomycin IV. Heme/Oncology on the case in regard to thrombocytopenia. The patient wants to go home. Continue to monitor the patient clinically. Follow with the labs. Discussed with Dr. Coppola in detail. Please refer to chart for more information. Dictated by Hong Machado PA-C (Al) Stephani Coppola MD /MODL /[id number]
[2020-01-17] MEDS: HYDRALAZINE HCL 20 MG/ML VIAL IV PRN (11:47)
--- NOTE | 2020-01-17 13:28 | NUR ---
HOME HEALTH DISCHARGE NOTE PATIENT ADDRESS WHERE SERVICE WILL BE RECEIVED: [address] [place] [id number] PATIENT CONTACT NUMBER: [phone] NAME OF [employer] COMPANY: [employer] TELEPHONE/FAX NUMBER OF COMPANY: OFF: [phone] / FAX: [phone] SERVICES TO RECEIVE: IV ANTIBIOTICS: VANCOMYCIN 1GM IV EVERY 12 HOURS TIMES 4 WEEKS. ANTICIPATED DATE SERVICES WILL BEGIN: 01/18/2020 NAME OF [employer] COMPANY: [employer] TELEPHONE/FAX NUMBER OF COMPANY: OFF: [phone] / FAX: [phone] SERVICES TO RECEIVE: GROUP HOME TO TEACH IV ANTIBIOTIC ADMINISTRATION AND DRAW LABS; CBC, CMP WEEKLY. DC PICC ONCE ANTIBIOTICS END. Please call the company above if you have not received a call to schedule a home visit within 24 hours of discharge.
[2020-01-17] MEDS: HYDROCODONE/APAP 7.5MG-325MG 1 EA TAB PO PRN (13:40)
--- NOTE | 2020-01-17 16:37 | NUR ---
Nutrition Screen Note RD Recommendation for Physician: - Continue current diet Plan of Care: RD following, monitoring for tolerance and adequacy Nutrition reason for involvement: Early LOS Primary Diagnose(s): infection of L elbow PMH: DM Ht: 63 in Wt: 160 lb BMI: 28.3 kg/m2 IBW: [address] Assessment: (01/16) 59 YOF admitted for infection of L elbow, seen today for LOS. Pt s/p removal of infected hardware of L elbow. Pt with confusion at times, sitter at bedside. 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 Pt denies any wt loss. Pt denies GI distress and denies any difficulties chewing or swallowing. Pt with no questions or concerns at time of visit. Chart reviewed. Labs and meds reviewed. Will continue to monitor. Current Diet: Cardiac Malnutrition Evaluation (01/17/20) The patient does not meet criteria for a specified degree of malnutrition at this time. Will re-evaluate at follow-up as appropriate. Diet Education Needs Assessment: Diet education not indicated. Diet tolerance: tolerating po Nutrition Care Level: low Signed: Jessie Munroe RD, LD, [facility]
--- NOTE | 2020-01-17 19:00 | NUR ---
RECEIVED THE PATIENT IN REPORT.CONFUSED.
--- NOTE | 2020-01-17 19:32 | NUR ---
PATIENT IS IN STABLE CONDITION WITH NO S/S OF RESPIRATORY DISTRESS. NO PAIN VOICED. CAST/ALYSSA BANDAGE NOTED TO LEFT UPPER EXTREMITY. SKIN TEAR NOTED TO RIGHT CALF/LOWER EXTREMITY- DRESSING APPLIED, MINIMUM DRAINAGE NOTED. BEDSIDE REPORT GIVEN TO ONCOMING NURSE. CALL LIGHT IS WITHIN REACH, PATIENT INSTRUCTED TO CALL FOR ASSISTANCE NEEDED. PATIENT'S IS COMING TO STAY WITH THE PATIENT THIS EVENING.
--- NOTE | 2020-01-17 20:31 | NUR ---
Family member with patient.assessment done.gen.pain voiced 01/26.norco 5 mg po given.no resp.distress.yolanda wrap on to left arm.bed locked and in lowest position.phone and call light within reach.instructed to call for assistance as needed.bed alarm on.
[2020-01-18] VITALS (8 sets, daily range): BP systolic 133–150; BP diastolic 59–92
--- NOTE | 2020-01-18 00:16 | NUR ---
Bp checked and noted 147/67.lyeing in the bed.refused to put bed alarm on.family member at bed side.
--- NOTE | 2020-01-18 01:08 | NUR ---
picc line dressing changed.patient tolerated well.
--- NOTE | 2020-01-18 02:25 | NUR ---
Bed alarm is going off.pct entered room,upon assessment found patient was trying to turn bed alarm off.
[2020-01-18 06:00] LABS: BASOPHILS % 0.7 % (0.0-1.0); EOSINOPHILS # (AUTO) 0.3 (0.0-0.4); EOSINOPHILS % 4.7 % (0.0-6.0); HEMATOCRIT 25.3 % (34.2-44.1); HEMOGLOBIN 8.5 g/dL (12.0-16.0); LYMPHOCYTES # (AUTO) 1.1 (1.0-3.2); LYMPHOCYTES % 17.6 % (18.0-39.1); MEAN CORPUSCULAR HEMOGLOBIN 33.5 pg (28-32); MEAN CORPUSCULAR HGB CONC 33.6 g/dL (31-35); MEAN CORPUSCULAR VOLUME 99.6 fL (81-99); MONOCYTES # (AUTO) 0.8 (0.2-0.8); MONOCYTES % 13.3 % (4.4-11.3); NEUTROPHILS # (AUTO) 3.9 (2.1-6.9); PLATELET COUNT 52 x10e3/uL (140-360); RED BLOOD COUNT 2.54 x10e6/uL (3.6-5.1); RED CELL DISTRIBUTION WIDTH 15.6 % (11.7-14.4)
[2020-01-18 06:34] LABS: ALANINE AMINOTRANSFERASE 22 IU/L (0-55); ALBUMIN 2.6 g/dL (3.5-5.0); ALBUMIN/GLOBULIN RATIO 0.7 (0.8-2.0); ALKALINE PHOSPHATASE 150 IU/L (40-150); ANION GAP 10.2 mmol/L (8-16); BLOOD UREA NITROGEN 9 mg/dL (7-26); BUN/CREATININE RATIO 12 (6-25); CALCIUM 8.7 mg/dL (8.4-10.2); CARBON DIOXIDE 23 mmol/L (22-29); CHLORIDE 99 mmol/L (98-107); CREATININE, SERUM 0.78 mg/dL (0.57-1.11); EST GLOMERULAR FILTRATION RATE > 60 ML/MIN (60-); GLUCOSE 136 mg/dL (74-118); MAGNESIUM 1.9 MG/DL (1.3-2.1); POTASSIUM 3.2 mmol/L (3.5-5.1); SODIUM 129 mmol/L (136-145)
--- NOTE | 2020-01-18 07:00 | NUR ---
PATIENT IS ALERT AND IS IN STABLE CONDITION WITH NO S/S OF RESPIRATORY DISTRESS. NO PAIN VOICED. O2 AND TELEMETRY APPLIED. QUEZADA INTACT AND DRAINING; URINE IS YELLOW AND CLEAR. DIAPER APPLIED. BED ALARM APPLIED. CALL LIGHT IS WITHIN REACH, PATIENT INSTRUCTED TO CALL FOR ASSISTANCE NEEDED.
--- NOTE | 2020-01-18 07:08 | NUR ---
Bed side shift report given to oncoming Rn.stable condition.
[2020-01-18] MEDS: INSULIN LISPRO 100 UNIT/1 ML 3ML VIAL SQ SCH ×4 (07:30→20:27)
[2020-01-18] MEDS: FAMOTIDINE 20 MG/2 ML VIAL IV SCH ×2 (08:27→16:41)
[2020-01-18] MEDS: METOPROLOL TARTRATE 25 MG TAB PO SCH ×2 (08:29→16:42)
[2020-01-18] MEDS: AMLODIPINE BESYLATE 5 MG TAB PO SCH (08:29)
[2020-01-18] MEDS: FERROUS SULFATE 325 MG TAB PO SCH ×2 (08:29→16:41)
[2020-01-18] MEDS: HYDROCHLOROTHIAZIDE 25 MG TAB PO SCH (08:29)
--- NOTE | 2020-01-18 09:18 | NUR ---
RECEIVED CRITICAL VANCO TROUGH OF 20.0- AL ON THE UNIT AND NOTIFIED. RECEIVED NEW ORDER TO DC VANCO 1 GRAM AND ENTER VANCOMYCIN 1.5GM DAILY TO START AT 1600 TODAY.
[2020-01-18] MEDS ORDERED: HYDROCODONE/APAP 5MG-325MG TAB PO PRN (09:30)
[2020-01-18] MEDS ORDERED: MORPHINE SULFATE 2 MG/ML SYR 1ML IV PRN (09:30)
[2020-01-18] MEDS ORDERED: POTASSIUM CHLORIDE 20 MEQ TAB CR PO SCH (09:30)
--- NOTE | 2020-01-18 09:37 | NUR ---
UNABLE TO PROCESS SNF ORDER, PT DOES NOT HAVE THE BENEFIT, ALERTED CM AND CM.
--- NOTE | 2020-01-18 09:47 | Progress Note ---
DATE: SUBJECTIVE: The patient is seen and examined today. The patient appeared comfortable, clinically doing okay. She has persistent anemia. Platelet counts are low, but is stable. No worsening thrombocytopenia noted. She also following ID very closely. PHYSICAL EXAMINATION: GENERAL: Alert, awake, and communicative. HEENT: Normocephalic and atraumatic. Sclerae pink. Conjunctivae clear. NECK: Supple. CHEST: Decreased breath sounds on the bases. ABDOMEN: Soft. EXTREMITIES: No edema. ASSET SPECIALIST: Confused. LABORATORY AND IMAGING DATA: Reviewed. ASSESSMENT AND PLAN: The patient with history of multiple medical condition includes fall. Noninfected hardware, status post removal, following ID, was on Rocephin, discontinued. Clinically doing . Continue ID recommendation. Thrombocytopenia. Platelet count is stable related with chronic liver disease, associated with decreased thrombopoietin secretion, also related with medication. RECOMMENDATION: 1. To close observation. 2. Try to avoid thrombocytopenic medication. 3. Monitor CBC. 4. We will follow the patient closely. Anemia. 1. Related with anemia of chronic liver disease. Ferritin level was normal, kidney function was normal, close observation, avoid frequent blood draw. Monitor CBC. We will follow. MD KINDRA Childers/JAN /[id number]
--- NOTE | 2020-01-18 09:47 | Progress Note ---
DATE: SUBJECTIVE: The patient is seen and evaluated. Available labs and notes reviewed. Discussed with the nurse. Discussed with the . The patient remains confused and maybe even little bit more than yesterday. REVIEW OF SYSTEMS: Wants to go home, but she understands that she is going to be going somewhere else for antibiotic for some time, but she does not want to stay there for six months she states. No nausea, vomiting, fever, chills, chest pain, or shortness of breath. Pain seems to be controlled. MEDICATIONS: Medication list is reviewed. From ID point of view, the patient is on vancomycin IV. LABORATORY STUDIES: White count of 6.15, hemoglobin 8.5, and platelet 52. Sodium 129, potassium 3.2, and creatinine 0.78. Ammonia level is 106. Albumin 2.6. Vancomycin trough was 18.4 on 01/15 with recheck pending from today. MICROBIOLOGY: No new microbiology studies available. Culture from the bone on 01/12 was Staph hominis. RADIOLOGY STUDIES: No new radiology studies available. PHYSICAL EXAMINATION: VITAL SIGNS: Temperature is 97.5, pulse is 82, respirations 20, and blood pressure 147/92. GENERAL: Alert and oriented, no acute distress. CV: S1-S2. CHEST: Equal expansion. Clear to auscultation. No acute distress. ABDOMEN: Soft. Nontender. Bowel sounds positive. HEENT: Moist. No pallor. No JVD. EXTREMITIES: Left upper extremity with soft cast and Marlon wrap. Right upper extremity with a PICC line. ASSESSMENT AND PLAN: 1. Status post removal of the left olecranon infected hardware. 2. Altered mental status/hallucination, seems to be slightly worse than yesterday. Ammonia level is at 106 with vancomycin trough as mentioned above. The patient was taken off Neurontin and rifampin was stopped secondary to altered mental status and elevation of liver function tests. The patient received [place] 19 hours ago. Morphine is on hold for past three days per my discussion with the nurse. 3. Thrombocytopenia-it is chronic. Continue with antibiotics. 4. Neuropathy. 5. Diabetes. Discussed with staff. Discharge planning is in progress to SNF versus LTAC for continuation of her medical care. The patient remains confused. Further management of this patient is based on daily findings on laboratory and physical examination. Please refer to chart for more information. Dictated by Hongrachelle Machado PA-C (Al) MD TOM Ya/JAN /[id number]
[2020-01-18] MEDS: SODIUM CHLORIDE 1 GM TAB PO SCH ×2 (10:40→16:42)
--- NOTE | 2020-01-18 11:26 | Diagnostic Imaging Report ---
EXAMINATION: Head CT HISTORY: Confusion, articular infection. COMPARISON: Head CT 11/26/2019 TECHNIQUE: Helical axial images of the head were obtained. Reformatted coronal and sagittal images from the axial data. Dose modulation, iterative reconstruction, and/or weight based adjustment of the mA/kV was utilized to reduce the radiation dose to as low as reasonably achievable. Image quality: Motion/streaking artifact limits the evaluation of the skull base and posterior cranial fossa. FINDINGS: Parenchyma: 1. Unchanged few scatter supratentorial white matter hypodensities, most likely nonspecific chronic microvascular ischemic changes. 2. No mass or hemorrhage. No CT evidence of acute territorial vascular insult. Extra-axial spaces:No abnormal density. No extra-axial fluid collections Brain volume: Normal for age. Ventricles: No hydrocephalus or displacement. Arteries: No density suggestive of thrombus. Dural sinuses: No abnormal density. Foramen magnum: No mass, Chiari malformation, or basilar invagination. Sella: No obvious mass. Paranasal/mastoid sinuses: Imaged portions unremarkable. Skull/Scalp: No lytic or blastic lesions. No fractures. IMPRESSION: 1. No acute intracranial abnormalities. 2. Mild chronic microvascular ischemic changes, stable from head CT of 11/26/2019. Signed by: Dr. Carolin White M.D. on 01/18/2020 11:23 AM
[2020-01-18] MEDS ORDERED: VANCOMYCIN HCL 1.5 GM in SODIUM CHLORIDE 0.9% 250ML 300 ML IV SCH (16:00)
--- NOTE | 2020-01-18 18:54 | Consultation ---
DATE OF CONSULTATION: 01/18/2020 REASON FOR CONSULTATION: Left elbow fracture repair, infected elbow and removal of hardware, peripheral polyneuropathy of lower extremities. HISTORY OF PRESENT ILLNESS: Mrs. Nichole Lopez is a 59-year-old female who had a fall about 4 weeks ago, had fractured left elbow, underwent ORIF that became infected. She had to have the hardware removed and needs antibiotics. The patient is seen by Dr. Coppola for antibiotic management. Also, she was found to have thrombocytopenia and in addition to that, she says reason why she fell because of neuropathy to her legs. The patient overall is doing better with her , but not improved to the point where she feels that she can go home and she did refuse rehab, but now she is open to it as is her . I am being asked. She also had altered mental status. Ammonia level 106 and medications were adjusted because of her confusion. She has a chronic thrombocytopenia as well as diabetes on being asked to evaluate for rehab needs. PAST MEDICAL HISTORY: Includes hypertension, diabetes, right femur fracture. ALLERGIES: NO KNOWN DRUG ALLERGIES. PAST SURGICAL HISTORY: Cholecystectomy, hysterectomy, left elbow ORIF. FAMILY HISTORY: Noncontributory. HABITS: Quit smoking 10 years ago. Has three drinks a day. SOCIAL HISTORY: Lives with her spouse in a one-story home, ambulatory, but she says she falls. LABORATORY DATA: White cell count 6.5, hemoglobin 10.1, hematocrit 32.6, platelets of 50. Sodium is 129, potassium 3.2, BUN 9, creatinine 0.7. INR is 1.16. Vancomycin is 18.4. Rehab lopez, the patient is able to ambulate with assistance and is nonweightbearing to the left upper extremity. Walked about 200 feet, but with assistance. PHYSICAL EXAMINATION: GENERAL: Awake and alert. No apparent distress at this time. Follows commands. Looks a little bit confused, but not too bad. Family think based on her liver function, elevated ammonia. EYES: Gaze conjugate. ORAL: Tongue is midline. NECK: Supple. No JVD. HEART: Regular. LUNGS: Fair air entry. ABDOMEN: Nondistended, nontender. EXTREMITIES: Left arm, she can wiggle her fingers of left hand, but could not really raise her shoulder up because of the elbow fracture and is in a splint. Right upper extremity demonstrates 4-/5 strength in lower extremity, 4/5 strength bilaterally. Sensory lopez, she has diminished sensation in the feet and her ankles. IMPRESSION: 1. Left elbow wound, status post removal of hardware, is on vancomycin, needs 6 weeks of it. 2. Impaired gait and mobility. Risk for falls due to neuropathy. 3. Intermittent confusion. She had some elevated ammonia. PLAN: We will check with insurance to see if they will allow her to come to rehab. Precautions falls. Thank you once again for allowing me to participate in this very interesting patient. Kosta Lindsey DO RPL/MODL /[id number]
[2020-01-18] MEDS ORDERED: ONDANSETRON HCL 4 MG ORAL DISINTEGRATING TAB PO PRN (19:15)
--- NOTE | 2020-01-18 19:15 | NUR ---
patient received sitting up in chair. noted at the bedside. no c/o pain noted. pm assessment complete. patient/ instructed to call for assistance when needed.
--- NOTE | 2020-01-18 19:26 | NUR ---
PATIENT IS IN STABLE CONDITION WITH NO S/S OF RESPIRATORY DISTRESS. NO PAIN VOICED. IV ANTIBIOTIC INFUSING. TELEMETRY APPLIED. PRESENT IN ROOM. CALL LIGHT IS WITHIN REACH, PATIENT INSTRUCTED TO CALL FOR ASSISTANCE NEEDED. REPORT GIVEN TO ONCOMING NURSE.
--- NOTE | 2020-01-19 00:45 | NUR ---
patient noted oob on her knees on the floor. noted at patients side. states, " she did not fall. she is ok. " patient assisted back to bed without difficulty. patient/ instructed to call when patient is needing to get out of bed. patient/ verbalize understanding of this.
[2020-01-19 04:00] VITALS: BP 162/60
[2020-01-19] MEDS: HYDRALAZINE HCL 20 MG/ML VIAL IV PRN (05:13)
--- NOTE | 2020-01-19 05:13 | NUR ---
patient medicated with hydralazine 10mg ivp for bp 162/60 at this time. am labs drawn from patients right upper arm picc line without difficulty.
[2020-01-19 05:41] LABS: BASOPHILS # (AUTO) 0.1 (0.0-0.1); BASOPHILS % 1.1 % (0.0-1.0); EOSINOPHILS # (AUTO) 0.2 (0.0-0.4); HEMATOCRIT 27.4 % (34.2-44.1); LYMPHOCYTES # (AUTO) 1.2 (1.0-3.2); LYMPHOCYTES % 16.6 % (18.0-39.1); MEAN CORPUSCULAR HEMOGLOBIN 32.7 pg (28-32); MEAN CORPUSCULAR HGB CONC 32.8 g/dL (31-35); MEAN CORPUSCULAR VOLUME 99.6 fL (81-99); MONOCYTES # (AUTO) 1.2 (0.2-0.8); MONOCYTES % 15.4 % (4.4-11.3); NEUTROPHILS # (AUTO) 4.7 (2.1-6.9); NEUTROPHILS % 63.2 % (38.7-80.0); PLATELET COUNT 75 x10e3/uL (140-360); RED BLOOD COUNT 2.75 x10e6/uL (3.6-5.1); RED CELL DISTRIBUTION WIDTH 15.7 % (11.7-14.4)
[2020-01-19 06:00] LABS: ALANINE AMINOTRANSFERASE 24 IU/L (0-55); ALBUMIN 2.8 g/dL (3.5-5.0); ALBUMIN/GLOBULIN RATIO 0.7 (0.8-2.0); ALKALINE PHOSPHATASE 163 IU/L (40-150); ANION GAP 12.1 mmol/L (8-16); BLOOD UREA NITROGEN 8 mg/dL (7-26); BUN/CREATININE RATIO 10 (6-25); CALCIUM 8.4 mg/dL (8.4-10.2); CARBON DIOXIDE 22 mmol/L (22-29); CHLORIDE 101 mmol/L (98-107); CREATININE, SERUM 0.81 mg/dL (0.57-1.11); EST GLOMERULAR FILTRATION RATE > 60 ML/MIN (60-); GLUCOSE 131 mg/dL (74-118); POTASSIUM 4.1 mmol/L (3.5-5.1); SODIUM 131 mmol/L (136-145)
--- NOTE | 2020-01-19 07:00 | NUR ---
PATIENT IS IN STABLE CONDITION WITH NO S/S OF RESPIRATORY DISTRESS. NO PAIN VOICED. TELEMETRY APPLIED. CAST/ALYSSA BANDAGE TO LEFT ARM. PRESENT IN ROOM. CALL LIGHT IS WITHIN REACH, PATIENT INSTRUCTED TO CALL FOR ASSISTANCE NEEDED.
[2020-01-19] MEDS: INSULIN LISPRO 100 UNIT/1 ML 3ML VIAL SQ SCH ×2 (07:30→11:30)
[2020-01-19 07:38] VITALS: BP 149/79
[2020-01-19 07:48] VITALS: BP 149/79
[2020-01-19] MEDS: FAMOTIDINE 20 MG/2 ML VIAL IV SCH (08:50)
[2020-01-19] MEDS: FERROUS SULFATE 325 MG TAB PO SCH (08:50)
[2020-01-19] MEDS: AMLODIPINE BESYLATE 5 MG TAB PO SCH (08:50)
[2020-01-19] MEDS: METOPROLOL TARTRATE 25 MG TAB PO SCH (08:50)
--- NOTE | 2020-01-19 09:18 | NUR ---
Spoke to pt at bedside. Pt wants to go home with IV abx and HH. Choice letter signed for [facility] and placed in front of chart. Updated HH and abx order faxed to [facility] at [phone]. Britton with [facility] was notified and informed of anticipated dc for today.
[2020-01-19] MEDS ORDERED: TYLENOL WITH C1 EACH PO (11:43)
[2020-01-19] MEDS ORDERED: NORVASC5 MG PO (11:43)
[2020-01-19 12:03] VITALS: BP 151/73
--- NOTE | 2020-01-19 12:23 | NUR ---
Received call from Amy with [facility] [phone]. States pt is approved and they have reached out to pt. She spoke to pt about virtual teaching and pt provided email address for instructional videos. Medications will be delivered today. Home health set up with [facility] [phone]. DON called and spoke with Dolly in intake. Informed her that pt is discharging today. State they will see pt tomorrow. [facility] and [facility]'s contact information was printed and given to pt's . Patti walker provided to pt. Pt signed green form and form turned into central supply.
--- NOTE | 2020-01-19 13:27 | NUR ---
PATIENT DISCHARGE HOME W/ HOME HEALTH- PATIENT OFF THE UNIT AT 1315 PER WHEELCHAIR ACCOMPANIED BY RN AND PCT TO THE FRONT LOBBY/'S VEHICLE. PATIENT IS IN STABLE CONDITION WITH NO S/S OF RESPIRATORY DISTRESS. NO PAIN VOICED. PICC LINE SALINE LOCKED AND CAPPED OFF. DISCHARGE INSTRUCTIONS, TEACHING, AND MEDICATIONS GIVEN TO THE PATIENT AND HER . ALL PERSONAL ITEMS INCLUDING THE WALKER WAS TAKEN BY THE PATIENT AND HER .
--- NOTE | 2020-01-20 15:15 | Discharge Summary ---
ADMISSION DIAGNOSES: 1. Left elbow wound with exposed hardware. 2. Type 2 diabetes. 3. Hypertension. 4. Insomnia. 5. Neuropathy. DISCHARGE DIAGNOSES: 1. Left elbow wound with exposed hardware. 2. Type 2 diabetes. 3. Hypertension. 4. Insomnia. 5. Neuropathy. 6. Transaminitis due to cirrhosis, rule out coronavirus disease pneumonia, rule out cerebrovascular accident. 7. Staphylococcus hominis of the left elbow wound, present on admission. HISTORY: Type 2 diabetes, hypertension, insomnia, and neuropathy. SURGICAL HISTORY: Cholecystectomy, hysterectomy, and left elbow ORIF. FAMILY HISTORY: The patient's dad and brother had diabetes. The patient's mom had cancer. The patient's grandmother had a stroke. SOCIAL HISTORY: The patient admits alcohol use. HOSPITAL COURSE: A 59-year-old female, admitted with complaints of left elbow wound. She had a left elbow ORIF on 12/08/2019. She says she keeps falling and landing on her elbow. She denies fever. She is unaware of any drainage since she cannot see the wound as it is on the back of her elbow. On admission, a wound culture was collected. Antibiotics were not started until after the wound culture was collected and after surgery. The patient had a debridement and exchange of hardware by Dr. Ferguson. Ultrasound of the abdomen was done, which showed hepatomegaly and hepatic cirrhosis. The ultrasound was completed due to transaminitis. The patient fell while hospitalized, so a knee x-ray was done, which was negative. Due to intermittent AMS, a CT of the brain was done, which was normal. Ammonia level was within normal limits. No new infection was noted. Coronavirus was negative. The patient will discharge home with family. She is given 1.5 g of Vancomycin daily for six weeks due to Staph hominis of the left elbow. ID recommends these antibiotics. According to the patient's daughter, the patient is safe to discharge home as she had her , her daughter, and two granddaughters at home. The daughter says she has used the PICC line before and will help her mother with the IV antibiotics. She was also given physical therapy at home and a walker. The patient's and daughter understand discharge instructions and agreed to plan. She will follow up with primary care in 1 to 2 weeks, Dr. Ferguson as discussed and powder blender regarding cirrhosis and elevated LFTs. Vital signs stable. The patient is afebrile. Dictated by Mary Choi, DRENCHER MD ANNETTE Shipman/MODL /[id number]
== END 2020-01-19 13:15 | disposition home or self-care (01) | DRG 507 ==
LOC: ER 18:08 → ERHOLD 21:49 → MED/SURG3 22:18 → MED/SURG2 01-18 17:29
PROVIDERS: ADMIT Internal Medicine; ATTEND Internal Medicine
PROC: 0RPM04Z Removal of Internal Fixation Device from Left Elbow Joint, Open Approach (ICD-10-PCS; principal; 2020-01-13 11:30)
PROC: 02HV33Z Insertion of Infusion Device into Superior Vena Cava, Percutaneous Approach (ICD-10-PCS; 2020-01-15)
DX: T84.69XA Infection and inflammatory reaction due to internal fixation device of other site, initial encounter (principal); E87.1 Hypo-osmolality and hyponatremia; T84.89XA Other specified complication of internal orthopedic prosthetic devices, implants and grafts, initial encounter; E11.42 Type 2 diabetes mellitus with diabetic polyneuropathy; D64.9 Anemia, unspecified; K74.60 Unspecified cirrhosis of liver; B95.7 Other staphylococcus as the cause of diseases classified elsewhere; I10 Essential (primary) hypertension; G47.00 Insomnia, unspecified; E83.42 Hypomagnesemia; K71.10 Toxic liver disease with hepatic necrosis, without coma; T36.6X5A Adverse effect of rifampicins, initial encounter; R44.1 Visual hallucinations; W18.30XA Fall on same level, unspecified, initial encounter; Y92.239 Unspecified place in hospital as the place of occurrence of the external cause; S81.811A Laceration without foreign body, right lower leg, initial encounter; K72.90 Hepatic failure, unspecified without coma; D69.6 Thrombocytopenia, unspecified
CPT/HCPCS: 36415; 36569; 70450; 71045; 74470; 76000; 76700; 80048; 80053; 80202; 81001; 82140; 82607; 82728; 82746; 82947; 82948; 83036; 83735; 83935; 84100; 84295; 84300; 84520; 85025; 85610; 85730; 86850; 86900; 87071; 87075; 87186; 87205; 88300; 93005; 96361; 97139; 99251; 99284; J0360; J0690; J1170; J2001; J2250; J2270; J2405; J3010; J3370; J3475; J7050; U0002

== ENCOUNTER 2021-05-21 19:27 | Inpatient (IN) | payer OTHER ==
[~2021-05-21] VITALS: Ht 160 cm; Wt 61.2 kg
[~2021-05-21 19:27] MED LIST changes: +NORVASC5 MG PO
[2021-05-21] MEDS ORDERED: HYDROCODONE/APAP 5MG-325MG TAB PO NR (20:00)
[2021-05-21] MEDS ORDERED: HYDROCODONE/APAP 5MG-325MG TAB ONE (20:14)
[2021-05-21] MEDS ORDERED: ONDANSETRON HCL INJ 2MG/ML 2ML 2 MG/ML VIAL IV STA (20:49)
[2021-05-21] MEDS ORDERED: SODIUM CHLORIDE 0.9% 1000ML 1,000 ML IV STA (20:55)
[2021-05-21] MEDS ORDERED: Morphine 4mg Syringe 4 MG/ML INJ IV PRN (21:00)
[2021-05-21] MEDS ORDERED: SODIUM CHLORIDE 0.9% 1000ML 1,000 ML IV SCH (21:00)
[2021-05-21] MEDS ORDERED: Morphine 4mg Syringe 4 MG/ML INJ IV ONE (21:00)
[2021-05-21] MEDS ORDERED: ONDANSETRON HCL INJ 2MG/ML 2ML 2 MG/ML VIAL ONE ×2 (21:12→23:07)
[2021-05-21] MEDS ORDERED: Morphine 4mg Syringe 4 MG/ML INJ ONE ×2 (21:12→23:07)
[2021-05-21] MEDS ORDERED: INSULIN REGULAR, HUMAN 100 UNIT/1 ML SQ ONE (21:15)
[2021-05-21] MEDS ORDERED: PROGRAF1 MG PO (22:23)
[2021-05-21] MEDS ORDERED: PREDNISONE5 MG PO (22:23)
[2021-05-21] MEDS ORDERED: MAGOX 400400 MG PO (22:23)
[2021-05-21] MEDS ORDERED: URSODIOL250 MG PO (22:23)
[2021-05-21] MEDS ORDERED: VALCYTE450 MG PO (22:23)
[2021-05-21] MEDS ORDERED: BACTRIM DS TAB1 EACH PO (22:23)
[2021-05-21] MEDS ORDERED: CELLCEPT500 MG PO (22:23)
[2021-05-21] MEDS ORDERED: FLUCONAZOLE100 MG PO (22:23)
[2021-05-21] MEDS ORDERED: OS-CAL 500+D T1 EACH PO (22:23)
[2021-05-21] MEDS ORDERED: TACROLIMUS1 MG PO (22:23)
[2021-05-21] MEDS ORDERED: FAMOTIDINE20 MG PO (22:23)
[2021-05-21] MEDS ORDERED: INSULIN REGULAR, HUMAN 100 UNIT/1 ML ONE (23:07)
[2021-05-21 23:30] VITALS: BP 106/64
[2021-05-22] VITALS (8 sets, daily range): BP systolic 106–124; BP diastolic 54–64
[2021-05-22] MEDS ORDERED: ASPIRIN81 MG PO (00:29)
[2021-05-22] MEDS ORDERED: AUGMENTIN 500-1 EACH PO (00:29)
[2021-05-22] MEDS: MYCOPHENOLATE MOFETIL 250 MG CAP PO SCH ×4 (01:00→17:42)
[2021-05-22] MEDS: TACROLIMUS 1 MG CAP PO SCH ×4 (01:00→17:42)
[2021-05-22] MEDS: HYDROMORPHONE 1MG/1ML INJ IV PRN ×7 (01:07→22:35)
[2021-05-22 01:14] LABS: BASOPHILS # (AUTO) 0.1 (0.0-0.1); BASOPHILS % 0.7 % (0.0-1.0); EOSINOPHILS % 0.3 % (0.0-6.0); HEMATOCRIT 24.7 % (34.2-44.1); HEMOGLOBIN 7.8 g/dL (12.0-16.0); LYMPHOCYTES # (AUTO) 1.5 (1.0-3.2); LYMPHOCYTES % 13.9 % (18.0-39.1); MEAN CORPUSCULAR HEMOGLOBIN 30.2 pg (28-32); MEAN CORPUSCULAR HGB CONC 31.6 g/dL (31-35); MEAN CORPUSCULAR VOLUME 95.7 fL (81-99); MONOCYTES # (AUTO) 0.7 (0.2-0.8); MONOCYTES % 6.4 % (4.4-11.3); NEUTROPHILS # (AUTO) 6.8 (2.1-6.9); NEUTROPHILS % 65.3 % (38.7-80.0); PLATELET COUNT 181 x10e3/uL (140-360); RED BLOOD COUNT 2.58 x10e6/uL (3.6-5.1); RED CELL DISTRIBUTION WIDTH 15.1 % (11.7-14.4)
[2021-05-22] MEDS ORDERED: POTASSIUM CHLORIDE 20 MEQ TAB CR PO PRN (01:15)
[2021-05-22] MEDS ORDERED: ALBUTEROL/IPRATROPIUM 3 ML NEB NEB PRN (01:15)
[2021-05-22] MEDS ORDERED: DOCUSATE SODIUM 100 MG CAP PO PRN (01:15)
[2021-05-22] MEDS ORDERED: DIPHENHYDRAMINE HCL 25 MG CAP PO PRN (01:15)
[2021-05-22] MEDS ORDERED: BENZONATATE 100 MG CAP PO PRN (01:15)
[2021-05-22] MEDS ORDERED: SIMETHICONE 80 MG CHEW PO PRN (01:15)
[2021-05-22] MEDS ORDERED: HYDRALAZINE HCL 20 MG/ML VIAL IV PRN (01:15)
[2021-05-22] MEDS ORDERED: LIDOCAINE 4% PATCH TP PRN (01:15)
[2021-05-22] MEDS ORDERED: DEXTROSE 50% SYRINGE 50 ML IV PRN ×2 (01:15→10:45)
[2021-05-22 01:21] LABS: INR 1.06; PROTHROMBIN TIME 14.7 seconds (11.9-14.5)
[2021-05-22 01:22] LABS: PARTIAL THROMBOPLASTIN TIME 28.5 seconds (23.8-35.5)
[2021-05-22] MEDS ORDERED: NOVOLIN N100 UNIT/1 SC (01:26)
[2021-05-22] MEDS ORDERED: HUMULIN R100 UNIT/2 INJ ×4 (01:26)
[2021-05-22 01:28] LABS: ANION GAP 14.9 mmol/L (8-16); CALCIUM 7.9 mg/dL (8.4-10.2); CREATININE, SERUM 0.85 mg/dL (0.57-1.11); POTASSIUM 3.9 mmol/L (3.5-5.1)
[2021-05-22] MEDS ORDERED: PNEUMOCOCCAL VACCINE POLYVALENT 23 MCG/0.5 ML VIAL IM SCH (01:46)
[2021-05-22] MEDS ORDERED: INFLUENZA VIRUS VAC SPLIT INJ 0.5 ML SYR IM SCH (01:46)
[2021-05-22] MEDS: ACETAMINOPHEN 325 MG TAB PO PRN (04:00)
[2021-05-22] MEDS: PANTOPRAZOLE SOD 40 MG TABEC PO SCH (07:30)
[2021-05-22 07:43] LABS: BASOPHILS # (AUTO) 0.1 (0.0-0.1); BASOPHILS % 0.5 % (0.0-1.0); EOSINOPHILS # (AUTO) 0.2 (0.0-0.4); EOSINOPHILS % 2.4 % (0.0-6.0); HEMATOCRIT 23.3 % (34.2-44.1); HEMOGLOBIN 7.5 g/dL (12.0-16.0); LYMPHOCYTES # (AUTO) 1.9 (1.0-3.2); LYMPHOCYTES % 19.3 % (18.0-39.1); MEAN CORPUSCULAR HEMOGLOBIN 30.6 pg (28-32); MEAN CORPUSCULAR HGB CONC 32.2 g/dL (31-35); MEAN CORPUSCULAR VOLUME 95.1 fL (81-99); MONOCYTES # (AUTO) 0.7 (0.2-0.8); MONOCYTES % 6.8 % (4.4-11.3); NEUTROPHILS # (AUTO) 5.9 (2.1-6.9); NEUTROPHILS % 59.1 % (38.7-80.0); PLATELET COUNT 173 x10e3/uL (140-360); RED BLOOD COUNT 2.45 x10e6/uL (3.6-5.1); RED CELL DISTRIBUTION WIDTH 15.2 % (11.7-14.4)
[2021-05-22 08:04] LABS: ALBUMIN 2.8 g/dL (3.5-5.0); ALBUMIN/GLOBULIN RATIO 0.9 (0.8-2.0); ANION GAP 14.9 mmol/L (8-16); CALCIUM 8.2 mg/dL (8.4-10.2); CREATININE, SERUM 0.76 mg/dL (0.57-1.11); POTASSIUM 3.9 mmol/L (3.5-5.1)
[2021-05-22] MEDS: FAMOTIDINE 20 MG TAB PO SCH (09:00)
[2021-05-22] MEDS ORDERED: MYCOPHENOLATE MOFETIL 250 MG CAP PO SCH (09:00)
[2021-05-22] MEDS ORDERED: TACROLIMUS 1 MG CAP PO SCH (09:00)
[2021-05-22] MEDS ORDERED: Vancomycin IV 1 GM VIAL ONE (14:11)
[2021-05-22] MEDS ORDERED: TRANEXAMIC ACID 1,000 MG/10 ML ML ONE (14:11)
[2021-05-22] MEDS ORDERED: Vancomycin IV 0 MG ONE (14:11)
[2021-05-22] MEDS ORDERED: ROPIVACAINE 246.25 MG, EPINEPHRINE HCL 1:1000 1ML 0.5 MG, CLONIDINE HCL 0.08 MG, KETORO... INJ ONE ×5 (14:30)
[2021-05-22] MEDS ORDERED: MEPERIDINE HCL INJ 25 MG/ML VIAL ONE (16:28)
[2021-05-22] MEDS ORDERED: SODIUM CHLORIDE 0.9% INJ 10 ML VIAL ONE (16:32)
[2021-05-22] MEDS ORDERED: SODIUM CHLORIDE 0.9% 50ML 50 ML ONE (16:33)
[2021-05-22] MEDS ORDERED: ENOXAPARIN SOD INJ 40 MG/0.4 ML SYR SC SCH (17:00)
[2021-05-22] MEDS ORDERED: FENTANYL CITRATE/PF 100MCG/2 ML INJ ONE (17:11)
[2021-05-22] MEDS: PREDNISONE 5 MG TAB PO SCH (17:42)
[2021-05-22] MEDS: MAGNESIUM OXIDE 400 MG TAB PO SCH ×2 (17:42→21:00)
[2021-05-22] MEDS: OYST-CAL-D 500MG TABLET PO SCH (17:42)
[2021-05-22] MEDS: ASPIRIN 81 MG CHEW TAB PO SCH (17:42)
[2021-05-22] MEDS: DEXTROSE 5%/0.9% SOD CHL 1,000 ML IV SCH (18:13)
[2021-05-23] VITALS (10 sets, daily range): BP systolic 107–150; BP diastolic 46–93
[2021-05-23] MEDS: DEXTROSE 5%/0.9% SOD CHL 1,000 ML IV SCH ×2 (00:35→15:12)
[2021-05-23 01:04] LABS: CLARITY,URINE SL CLOUDY (CLEAR); COLOR,URINE AMBER (YELLOW); KETONES,URINE 2+ (NEGATIVE); LEUKOCYTE ESTERASE ,URINE SMALL (NEGATIVE); NITRITE,URINE POSITIVE (NEGATIVE); PROTEIN,URINE DIPSTICK 2+ (NEGATIVE); URINE UROBILINOGEN 1 mg/dL (0.2 - 1)
[2021-05-23 01:09] LABS: BACTERIA,URINE MODERATE /HPF; EPITHELIAL CELLS,URINE FEW /LPF; WBC,URINE (MAN) 21-50 /HPF (0-5)
[2021-05-23] MEDS: ONDANSETRON HCL INJ 2MG/ML 2ML 2 MG/ML VIAL IV PRN ×2 (01:45→06:44)
[2021-05-23] MEDS: HYDROMORPHONE 1MG/1ML INJ IV PRN ×4 (02:37→15:12)
[2021-05-23 05:26] LABS: BASOPHILS % 0.4 % (0.0-1.0); EOSINOPHILS # (AUTO) 0.1 (0.0-0.4); EOSINOPHILS % 1.1 % (0.0-6.0); HEMATOCRIT 23.1 % (34.2-44.1); HEMOGLOBIN 7.3 g/dL (12.0-16.0); LYMPHOCYTES # (AUTO) 1.4 (1.0-3.2); LYMPHOCYTES % 13.1 % (18.0-39.1); MEAN CORPUSCULAR HEMOGLOBIN 30.5 pg (28-32); MEAN CORPUSCULAR HGB CONC 31.6 g/dL (31-35); MEAN CORPUSCULAR VOLUME 96.7 fL (81-99); MONOCYTES # (AUTO) 0.9 (0.2-0.8); MONOCYTES % 8.4 % (4.4-11.3); NEUTROPHILS # (AUTO) 6.8 (2.1-6.9); NEUTROPHILS % 63.8 % (38.7-80.0); PLATELET COUNT 145 x10e3/uL (140-360); RED BLOOD COUNT 2.39 x10e6/uL (3.6-5.1); RED CELL DISTRIBUTION WIDTH 15.2 % (11.7-14.4)
[2021-05-23 06:00] LABS: MAGNESIUM 1.3 MG/DL (1.3-2.1)
[2021-05-23 06:21] LABS: THYROID STIMULATING HORMONE 0.657 uIU/mL (0.350-4.940)
[2021-05-23] MEDS: PANTOPRAZOLE SOD 40 MG TABEC PO SCH (07:30)
[2021-05-23] MEDS ORDERED: SODIUM CHLORIDE 0.9% 250ML 250 ML ONE ×2 (08:25→12:41)
[2021-05-23] MEDS: PREDNISONE 5 MG TAB PO SCH (09:00)
[2021-05-23] MEDS: OYST-CAL-D 500MG TABLET PO SCH ×2 (09:00→17:00)
[2021-05-23] MEDS: MAGNESIUM OXIDE 400 MG TAB PO SCH ×3 (09:00→21:00)
[2021-05-23] MEDS: FAMOTIDINE 20 MG TAB PO SCH (09:00)
[2021-05-23] MEDS: ASPIRIN 81 MG CHEW TAB PO SCH (09:00)
[2021-05-23] MEDS ORDERED: DEXTROSE 50% SYRINGE 50 ML IV PRN (11:45)
[2021-05-23] MEDS: TACROLIMUS 1 MG CAP PO SCH ×2 (11:50→23:33)
[2021-05-23] MEDS: MYCOPHENOLATE MOFETIL 250 MG CAP PO SCH ×2 (11:50→16:26)
[2021-05-23] MEDS: INSULIN REGULAR, HUMAN 100 UNIT/1 ML SQ SCH ×3 (15:54→21:00)
[2021-05-23] MEDS ORDERED: TRANEXAMIC ACID 1,000 MG/10 ML ML ONE (17:11)
[2021-05-23] MEDS ORDERED: Vancomycin IV 500 MG ONE (17:11)
[2021-05-23] MEDS ORDERED: Vancomycin IV 1 GM VIAL ONE (17:11)
[2021-05-23] MEDS ORDERED: FENTANYL CITRATE/PF 100MCG/2 ML INJ ONE ×2 (17:23→20:45)
[2021-05-23] MEDS ORDERED: ROPIVACAINE 246.25 MG, EPINEPHRINE HCL 1:1000 1ML 0.5 MG, CLONIDINE HCL 0.08 MG, KETORO... INJ ONE ×5 (17:30)
[2021-05-23] MEDS ORDERED: LIDOCAINE HCL 2% LOCAL INJ 5 ML SDV VIAL INJ ONE (17:51)
[2021-05-23] MEDS ORDERED: PROPOFOL IV EMULSION 10 MG/ML 20 ML VIAL ONE (17:51)
[2021-05-23] MEDS ORDERED: ROCURONIUM BROMIDE 10 MG/ML 5ML VIAL IV ONE (17:51)
[2021-05-23] MEDS ORDERED: GLYCOPYRROLATE INJ 0.2 MG/ML VIAL ONE (17:51)
[2021-05-23] MEDS ORDERED: DESFLURANE 240 ML BTL INH ONE (17:51)
[2021-05-23] MEDS ORDERED: POVIDONE IODINE 0.05% 0.05 % ML PO ONE (17:51)
[2021-05-23] MEDS ORDERED: NEOSTIGMINE 1 MG/ML 10ML VIAL ONE (17:51)
[2021-05-23] MEDS ORDERED: ONDANSETRON HCL INJ 2MG/ML 2ML 2 MG/ML VIAL ONE (17:51)
[2021-05-23] MEDS ORDERED: SODIUM CHLORIDE 0.9% 50ML 100 ML ONE (17:53)
[2021-05-23] MEDS: Cefazolin 2 GM in SODIUM CHLORIDE 0.9% 50ML 50 ML IV SCH (22:00)
[2021-05-24] VITALS (7 sets, daily range): BP systolic 107–125; BP diastolic 56–64
[2021-05-24] MEDS: HYDROMORPHONE 1MG/1ML INJ IV PRN ×6 (01:04→23:20)
[2021-05-24] MEDS: ONDANSETRON HCL INJ 2MG/ML 2ML 2 MG/ML VIAL IV PRN ×4 (01:07→15:05)
[2021-05-24] MEDS: DEXTROSE 5%/0.9% SOD CHL 1,000 ML IV SCH (04:25)
[2021-05-24 04:55] LABS: BASOPHILS % 0.3 % (0.0-1.0); EOSINOPHILS # (AUTO) 0.1 (0.0-0.4); EOSINOPHILS % 1.3 % (0.0-6.0); HEMATOCRIT 22.2 % (34.2-44.1); HEMOGLOBIN 7.2 g/dL (12.0-16.0); LYMPHOCYTES % 13.4 % (18.0-39.1); MEAN CORPUSCULAR HEMOGLOBIN 30.1 pg (28-32); MEAN CORPUSCULAR HGB CONC 32.4 g/dL (31-35); MEAN CORPUSCULAR VOLUME 92.9 fL (81-99); MONOCYTES # (AUTO) 0.4 (0.2-0.8); MONOCYTES % 5.1 % (4.4-11.3); NEUTROPHILS # (AUTO) 4.5 (2.1-6.9); NEUTROPHILS % 63.6 % (38.7-80.0); PLATELET COUNT 106 x10e3/uL (140-360); RED BLOOD COUNT 2.39 x10e6/uL (3.6-5.1); RED CELL DISTRIBUTION WIDTH 15.6 % (11.7-14.4)
[2021-05-24 05:12] LABS: ANION GAP 10.5 mmol/L (8-16); CALCIUM 7.4 mg/dL (8.4-10.2); CREATININE, SERUM 0.66 mg/dL (0.57-1.11); POTASSIUM 4.5 mmol/L (3.5-5.1)
[2021-05-24 05:36] LABS: MAGNESIUM 1.3 MG/DL (1.3-2.1); PHOSPHORUS 2.9 MG/DL (2.3-4.7)
[2021-05-24 06:01] LABS: BAND NEUTROPHILS % (MANUAL) 4 %; EOSINOPHILS % (MANUAL) 3 % (0-7); LYMPHOCYTES % (MANUAL) 10 % (19-48); METAMYELOCYTES % (MANUAL) 7 % (0-0); MONOCYTES % (MANUAL) 6 % (3.4-9.0); MYELOCYTES % (MANUAL) 3 % (0-0); NEUTROPHILS % (MANUAL) 67 % (40-74); PLATELET ESTIMATE MODERATELY DECREASED; PLATELET MORPHOLOGY COMMENT NORMAL; RBC MORPHOLOGY COMMENT NORMAL
[2021-05-24] MEDS: Cefazolin 2 GM in SODIUM CHLORIDE 0.9% 50ML 50 ML IV SCH ×2 (06:20→13:05)
[2021-05-24] MEDS: CELECOXIB 100 MG CAP PO SCH ×2 (08:39→16:58)
[2021-05-24] MEDS: ASPIRIN 81 MG CHEW TAB PO SCH (08:39)
[2021-05-24] MEDS: PANTOPRAZOLE SOD 40 MG TABEC PO SCH (08:39)
[2021-05-24] MEDS: MYCOPHENOLATE MOFETIL 250 MG CAP PO SCH ×2 (08:40→16:58)
[2021-05-24] MEDS: INSULIN REGULAR, HUMAN 100 UNIT/1 ML SQ SCH ×4 (08:40→21:00)
[2021-05-24] MEDS: MAGNESIUM OXIDE 400 MG TAB PO SCH ×3 (08:40→21:00)
[2021-05-24] MEDS: OYST-CAL-D 500MG TABLET PO SCH ×2 (08:41→16:58)
[2021-05-24] MEDS: FAMOTIDINE 20 MG TAB PO SCH (08:41)
[2021-05-24] MEDS: TACROLIMUS 1 MG CAP PO SCH ×2 (08:42→16:58)
[2021-05-24] MEDS: PREDNISONE 5 MG TAB PO SCH (08:43)
[2021-05-24] MEDS ORDERED: SODIUM CHLORIDE 0.9% 250ML 250 ML IV ONE (11:45)
[2021-05-24] MEDS: ENOXAPARIN SOD INJ 40 MG/0.4 ML SYR SC SCH (16:58)
[2021-05-24] MEDS ORDERED: ACETAMINOPHEN 1000 MG/100 ML IV PRN (20:00)
[2021-05-25] VITALS (8 sets, daily range): BP systolic 110–161; BP diastolic 48–90
[2021-05-25] MEDS ORDERED: SODIUM CHLORIDE 0.9% 250ML 250 ML ONE (00:01)
[2021-05-25] MEDS: HYDROMORPHONE 1MG/1ML INJ IV PRN ×6 (03:30→23:45)
[2021-05-25 05:19] LABS: BASOPHILS % 0.3 % (0.0-1.0); EOSINOPHILS # (AUTO) 0.2 (0.0-0.4); EOSINOPHILS % 2.5 % (0.0-6.0); HEMATOCRIT 26.5 % (34.2-44.1); HEMOGLOBIN 8.6 g/dL (12.0-16.0); LYMPHOCYTES % 14.7 % (18.0-39.1); MEAN CORPUSCULAR HEMOGLOBIN 30.1 pg (28-32); MEAN CORPUSCULAR HGB CONC 32.5 g/dL (31-35); MEAN CORPUSCULAR VOLUME 92.7 fL (81-99); MONOCYTES # (AUTO) 0.3 (0.2-0.8); MONOCYTES % 4.5 % (4.4-11.3); NEUTROPHILS # (AUTO) 4.3 (2.1-6.9); NEUTROPHILS % 66.6 % (38.7-80.0); PLATELET COUNT 110 x10e3/uL (140-360); RED BLOOD COUNT 2.86 x10e6/uL (3.6-5.1)
[2021-05-25 05:36] LABS: ANION GAP 12.2 mmol/L (8-16); CALCIUM 7.8 mg/dL (8.4-10.2); CREATININE, SERUM 0.74 mg/dL (0.57-1.11); POTASSIUM 4.2 mmol/L (3.5-5.1)
[2021-05-25] MEDS: ACETAMINOPHEN 325 MG TAB PO PRN ×2 (06:20→22:16)
[2021-05-25 07:01] LABS: BAND NEUTROPHILS % (MANUAL) 5 %; EOSINOPHILS % (MANUAL) 3 % (0-7); LYMPHOCYTES % (MANUAL) 27 % (19-48); METAMYELOCYTES % (MANUAL) 2 % (0-0); NEUTROPHILS % (MANUAL) 56 % (40-74); NUCLEATED RED BLOOD CELLS 8
[2021-05-25 07:02] LABS: PLATELET MORPHOLOGY COMMENT NORMAL; RBC MORPHOLOGY COMMENT NORMAL
[2021-05-25 07:03] LABS: PLATELET ESTIMATE SLIGHTLY DECREASED
[2021-05-25] MEDS: INSULIN REGULAR, HUMAN 100 UNIT/1 ML SQ SCH ×4 (07:30→21:23)
[2021-05-25] MEDS: PANTOPRAZOLE SOD 40 MG TABEC PO SCH (09:45)
[2021-05-25] MEDS: MYCOPHENOLATE MOFETIL 250 MG CAP PO SCH ×2 (09:48→17:28)
[2021-05-25] MEDS: CELECOXIB 100 MG CAP PO SCH ×2 (09:48→17:28)
[2021-05-25] MEDS: MAGNESIUM OXIDE 400 MG TAB PO SCH ×3 (09:48→21:16)
[2021-05-25] MEDS: OYST-CAL-D 500MG TABLET PO SCH ×2 (09:48→17:28)
[2021-05-25] MEDS: ASPIRIN 81 MG CHEW TAB PO SCH (09:48)
[2021-05-25] MEDS: FAMOTIDINE 20 MG TAB PO SCH (09:49)
[2021-05-25] MEDS: TACROLIMUS 1 MG CAP PO SCH ×2 (09:50→17:28)
[2021-05-25] MEDS: PREDNISONE 5 MG TAB PO SCH (09:50)
[2021-05-25] MEDS: ENOXAPARIN SOD INJ 40 MG/0.4 ML SYR SC SCH (17:28)
[2021-05-26] VITALS (9 sets, daily range): BP systolic 131–177; BP diastolic 64–84
[2021-05-26] MEDS: HYDROMORPHONE 1MG/1ML INJ IV PRN ×3 (03:46→13:10)
[2021-05-26 06:26] LABS: BASOPHILS % 0.5 % (0.0-1.0); EOSINOPHILS # (AUTO) 0.1 (0.0-0.4); HEMATOCRIT 27.7 % (34.2-44.1); LYMPHOCYTES # (AUTO) 0.9 (1.0-3.2); LYMPHOCYTES % 15.6 % (18.0-39.1); MEAN CORPUSCULAR HEMOGLOBIN 30.1 pg (28-32); MEAN CORPUSCULAR HGB CONC 32.5 g/dL (31-35); MEAN CORPUSCULAR VOLUME 92.6 fL (81-99); MONOCYTES # (AUTO) 0.3 (0.2-0.8); MONOCYTES % 5.7 % (4.4-11.3); NEUTROPHILS % 66.2 % (38.7-80.0); PLATELET COUNT 127 x10e3/uL (140-360); RED BLOOD COUNT 2.99 x10e6/uL (3.6-5.1); RED CELL DISTRIBUTION WIDTH 15.1 % (11.7-14.4)
[2021-05-26 07:05] LABS: ANION GAP 13.6 mmol/L (8-16); CALCIUM 8.4 mg/dL (8.4-10.2); CREATININE, SERUM 0.71 mg/dL (0.57-1.11); POTASSIUM 4.6 mmol/L (3.5-5.1)
[2021-05-26] MEDS: PANTOPRAZOLE SOD 40 MG TABEC PO SCH (08:09)
[2021-05-26] MEDS: MYCOPHENOLATE MOFETIL 250 MG CAP PO SCH ×2 (08:10→17:14)
[2021-05-26] MEDS: ASPIRIN 81 MG CHEW TAB PO SCH (08:10)
[2021-05-26] MEDS: CELECOXIB 100 MG CAP PO SCH ×2 (08:10→17:14)
[2021-05-26] MEDS: INSULIN REGULAR, HUMAN 100 UNIT/1 ML SQ SCH ×4 (08:10→20:23)
[2021-05-26] MEDS: MAGNESIUM OXIDE 400 MG TAB PO SCH (08:11)
[2021-05-26] MEDS: FAMOTIDINE 20 MG TAB PO SCH (08:12)
[2021-05-26] MEDS: OYST-CAL-D 500MG TABLET PO SCH (08:12)
[2021-05-26] MEDS: PREDNISONE 5 MG TAB PO SCH (08:13)
[2021-05-26] MEDS: TACROLIMUS 1 MG CAP PO SCH ×2 (10:30→17:14)
[2021-05-26] MEDS: ACETAMINOPHEN 325 MG TAB PO PRN (11:00)
[2021-05-26] MEDS: HYDROCODONE/APAP 7.5MG-325MG 1 EA TAB PO PRN ×2 (14:25→20:22)
[2021-05-26] MEDS: ENOXAPARIN SOD INJ 40 MG/0.4 ML SYR SC SCH (17:14)
[2021-05-26] MEDS ORDERED: DOCUSATE SODIUM 100 MG CAP PO ONE (18:30)
[2021-05-26] MEDS ORDERED: CITRATE OF MAGNESIA 300ML BOTTLE PO ONE (18:30)
[2021-05-27] MEDS: HYDROCODONE/APAP 7.5MG-325MG 1 EA TAB PO PRN ×3 (02:28→14:29)
[2021-05-27 04:00] VITALS: BP 130/70
[2021-05-27] MEDS: INSULIN REGULAR, HUMAN 100 UNIT/1 ML SQ SCH ×2 (08:00→12:30)
[2021-05-27 08:18] VITALS: BP 127/63
[2021-05-27] MEDS: TACROLIMUS 1 MG CAP PO SCH (08:27)
[2021-05-27] MEDS: MYCOPHENOLATE MOFETIL 250 MG CAP PO SCH (08:27)
[2021-05-27] MEDS: CELECOXIB 100 MG CAP PO SCH (08:27)
[2021-05-27] MEDS: PANTOPRAZOLE SOD 40 MG TABEC PO SCH (08:27)
[2021-05-27] MEDS: FAMOTIDINE 20 MG TAB PO SCH (08:27)
[2021-05-27] MEDS: PREDNISONE 5 MG TAB PO SCH (08:27)
[2021-05-27] MEDS: ASPIRIN 81 MG CHEW TAB PO SCH (08:27)
[2021-05-27 08:30] VITALS: BP 127/63
[2021-05-27 11:30] VITALS: BP 130/73
[2021-05-27] MEDS ORDERED: ONDANSETRON HCL 4 MG ORAL DISINTEGRATING TAB PO PRN (12:30)
[2021-05-27] MEDS ORDERED: INFLUENZA VIRUS VAC SPLIT INJ 0.5 ML SYR IM ONE (16:00)
== END 2021-05-27 17:00 | disposition home health service (06) | DRG 956 ==
LOC: FSED 19:55 → ERHOLD 20:56 → MED/SURG 23:14
PROVIDERS: ADMIT Internal Medicine; ATTEND Internal Medicine
PROC: 30233N1 Transfusion of Nonautologous Red Blood Cells into Peripheral Vein, Percutaneous Approach (ICD-10-PCS; principal; 2021-05-23 17:58)
PROC: 0QS606Z Reposition Right Upper Femur with Intramedullary Internal Fixation Device, Open Approach (ICD-10-PCS; principal; 2021-05-23 17:58)
PROC: 0SRR01Z Replacement of Right Hip Joint, Femoral Surface with Metal Synthetic Substitute, Open Approach (ICD-10-PCS; principal; 2021-05-23 17:58)
DX: S72.001A Fracture of unspecified part of neck of right femur, initial encounter for closed fracture (principal); S32.511A Fracture of superior rim of right pubis, initial encounter for closed fracture; Z94.0 Kidney transplant status; Z94.4 Liver transplant status; E11.52 Type 2 diabetes mellitus with diabetic peripheral angiopathy with gangrene; I96 Gangrene, not elsewhere classified; M84.451A Pathological fracture, right femur, initial encounter for fracture; M84.411A Pathological fracture, right shoulder, initial encounter for fracture; M84.48XA Pathological fracture, other site, initial encounter for fracture; Z90.49 Acquired absence of other specified parts of digestive tract; I95.9 Hypotension, unspecified; F10.21 Alcohol dependence, in remission; W01.0XXA Fall on same level from slipping, tripping and stumbling without subsequent striking against object, initial encounter; Y93.01 Activity, walking, marching and hiking; Y92.89 Other specified places as the place of occurrence of the external cause; Z20.822 Contact with and (suspected) exposure to COVID-19
CPT/HCPCS: 36415; 70450; 71045; 71250; 72125; 72170; 74176; 80048; 80053; 81001; 82948; 83735; 84100; 84443; 85025; 85610; 85730; 86850; 86900; 86920; 93005; 93306; 94799; 97139; 99251; 99284; C1713; C1776; J0171; J0360; J0690; J1170; J1650; J1817; J1885; J2001; J2175; J2270; J2405; J2710; J2795; J3010; J3370; J7030; J7042; J7050; J7507; J7512; P9016; U0002